=== PATIENT | female | born 1940 | race Caucasian/White ===

== ENCOUNTER 2017-01-24 10:03 | Outpatient (CLI) | payer MEDICARE, OTHER ==
--- NOTE | 2017-01-24 19:12 | Ultrasound Report ---
RETROPERITONEAL ULTRASOUND: 01/24/2017 COMPARISON: Renal artery ultrasound 03/24/2006. INDICATION: Increased creatinine. TECHNIQUE: Sonographic evaluation of the kidneys and urinary bladder. FINDINGS: The right kidney is significantly atrophic with increased echogenicity, consistent with ch ronic kidney disease. There are two cysts within the right kidney that measure up to 1.3 cm. The left kidney has a grossly normal sonographic appearance. Right kidney 6.2 cm. Left kidney 12.2 cm. Bladder volume is 316 mL. Postvoid residual 163 mL. Bilateral ureteral jets are present. IMPRESSION: 1. ATROPHIC RIGHT KIDNEY CONSISTENT WITH CHRONIC RENAL DISEASE. 2. LEFT KIDNEY HAS A GROSSLY NORMAL SONOGRAPHIC APPEARANCE. 3. POSTVOID RESIDUAL ABOVE. JOB #: [id number] EXT JOB #:[id number]
== END 2017-01-24 10:04 | disposition home or self-care (01) ==
LOC: DI 10:03
PROVIDERS: ATTEND Internal Medicine
DX: N26.1 Atrophy of kidney (terminal) (principal)
CPT/HCPCS: 76770

== ENCOUNTER 2017-04-16 08:00 | Outpatient (CLI) | payer MEDICARE, OTHER ==
[2017-04-16 10:14] LABS: VBG PH 7.346 (7.31-7.41)
[2017-04-16 10:26] LABS: ALBUMIN 3.7 g/dL (3.2-5.5); ALBUMIN/GLOBULIN RATIO 1.2 (1.0-2.2); BILIRUBIN,TOTAL 0.5 mg/dL (0.2-1.0); CALCIUM 10.2 mg/dL (8.5-10.3); CREATININE 0.9 mg/dL (0.4-1.0); TOTAL PROTEIN 6.9 g/dL (6.7-8.2)
== END 2017-04-16 08:01 | disposition home or self-care (01) ==
LOC: LAB 08:00 → LAB.F 08:55
PROVIDERS: ATTEND Internal Medicine
DX: E83.52 Hypercalcemia (principal); E21.3 Hyperparathyroidism, unspecified; R79.89 Other specified abnormal findings of blood chemistry; R53.83 Other fatigue
CPT/HCPCS: 36415; 80053; 82330; 83970

== ENCOUNTER 2017-05-22 08:11 | Outpatient (CLI) | payer MEDICARE, OTHER ==
--- NOTE | 2017-05-22 15:22 | DEXA Report ---
DEXA SCAN: 05/22/2017 CLINICAL INDICATION: Post-menopausal, new diagnosis of hyperparathyroidism. TECHNIQUE: Dual energy x-ray absorptiometry (DXA) was performed on a Easy Ice system. Regions measured are the AP spine, femoral neck, and, if needed, forearm. COMPARISON: None. In accordance with the International Society for Clinical Densitometry (ISCD) guidelines, data from previous exams may be reanalyzed using current recommendations and techniques. This is done to allow a more accurate basis for comparison with the current study. FINDINGS: The data for the lumbar spine is as follows: REGION BMD (g/cm/cm) T-SCORE Z-SCORE L1 0.962 -1.4 0.1 L2 1.124 -0.6 0.9 TOTAL 1.040 -1.0 0.5 NOTE: All evaluable vertebrae are used for classification. The data for the hip is as follows: REGION BMD (g/cm/cm) T-SCORE Z-SCORE Neck 0.814 -1.6 0.3 TOTAL 0.783 -1.8 -0.1 NOTE: The femoral neck or total proximal femur, whichever is lowest, is used for classification. The data for the forearm is as follows: REGION BMD (g/cm/cm) T-SCORE Z-SCORE 1/3 0.484 -4.5 -1.9 NOTE: The 33% radius of the nondominant forearm is used for classification. IMPRESSION 1. THE WHO CLASSIFICATION BASED ON THE INTERNATIONAL REFERENCE STANDARD IS OSTEOPOROSIS. THE FRACTURE RISK IS HIGH. 2. RIGHT FOREARM EVALUATION PERFORMED DUE TO NEW DIAGNOSIS OF HYPERPARATHYROIDISM. RECOMMENDATION: Patients with diagnosis of osteoporosis or osteopenia should have regular bone mineral density assessment. For those eligible for Medicare, routine testing is allowed once every 2 years. Testing frequency can be increased for patients who have rapidly progressing disease or for those who are receiving medical therapy to restore bone mass. COMMENT: World Health Organization (WHO) definitions for osteoporosis and osteopenia: NORMAL BMD: T-score at 1.0 or higher, fracture risk is low. OSTEOPENIA BMD: T-score between 1.0 and -2.5, fracture risk is increased. OSTEOPOROSIS BMD: T-score at 2.5 or lower, fracture risk high. National Osteoporosis Foundation recommends: 1. Obtain adequate dietary calcium (at least 1200 mg per day) and vitamin D (400 -800 international units per day). 2. Participate, as appropriate, in regular weightbearing and muscle- strengthening exercise. 3. Avoid tobacco use and reduce alcohol and caffeine intake. 4. For more detailed information see the website at www.NOF.org. MTDD
== END 2017-05-22 08:12 | disposition home or self-care (01) ==
LOC: DI 08:11
PROVIDERS: ATTEND Internal Medicine
DX: Z13.820 Encounter for screening for osteoporosis (principal); M81.0 Age-related osteoporosis without current pathological fracture; N95.8 Other specified menopausal and perimenopausal disorders; E21.3 Hyperparathyroidism, unspecified
CPT/HCPCS: 77080; 77081

== ENCOUNTER 2017-07-17 15:56 | Outpatient (CLI) | payer MEDICARE, OTHER | END 2017-07-17 15:57 | disposition home or self-care (01) | LOC: LAB 15:56 | PROVIDERS: ATTEND Otolaryngology | DX: E21.0 Primary hyperparathyroidism (principal) | CPT/HCPCS: 36415; 82306; 82310; 83970 ==

== ENCOUNTER 2018-10-09 14:07 | Emergency (ER) | payer MEDICARE, OTHER ==
[2018-10-09] MEDS ORDERED: BACLOFEN 10 MG TABLET PO STA (15:09)
[2018-10-09] MEDS ORDERED: KETOROLAC 30 MG/ML VIAL IVP STA (15:09)
--- NOTE | 2018-10-09 15:27 | ED Physician Documentation ---
PD HPI NECK PAIN - Stated complaint Stated Complaint: NECK PX - Chief complaint Chief Complaint: Back Pain - History obtained from History obtained from: Patient - History of Present Illness Timing - duration: Days (3 days after driving back to [facility] from [place] over the weekened.) Timing - details: Abrupt onset Severity Comments: moderate stiffness more than pain Location: Other (lower neck bilaterally) Quality: Pain, Spasm Associated symptoms: No: Fever, Weakness, Numbness, Incontinent of urine, Unable to urinate, Hematuria, Incontinent of stool Improves with: Nothing Worsened by: Movement Similar symptoms before: Has not had sx before Recently seen: Other (by chiropractor) - Treatment prior to arrival 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 Did take a long car ride Review of Systems Ten Systems: 10 systems reviewed and negative Constitutional: denies: Fever, Chills Cardiac: reports: Reviewed and negative Respiratory: reports: Dyspnea. denies: Cough, Hemoptysis, Wheezing GI: denies: Abdominal Pain, Nausea, Vomiting : reports: Reviewed and negative Skin: reports: Reviewed and negative Musculoskeletal: reports: Neck pain. denies: Back pain, Extremity pain, Joint pain, Extremity swelling, Joint swelling, Pain with weight bearing Neurologic: denies: Headache, Head injury, LOC PD PAST MEDICAL HISTORY - Past Medical History Past Medical History: Yes Cardiovascular: Hypertension Respiratory: None Endocrine/Autoimmune: None GI: GERD : None HEENT: None Psych: None Musculoskeletal: Other Derm: None - Past Surgical History General: Colonoscopy Ortho: Hip replacement, Spine surgery - Present Medications Home Medications: Ambulatory Orders Medication Instructions Recorded Confirmed Lisinopril 20 mg PO DAILY 11/30/14 11/30/14 Omeprazole [PriLOSEC] 20 mg PO BID 11/30/14 11/30/14 hydroCHLOROthiazide 12.5 mg PO DAILY 11/30/14 11/30/14 [Hydrochlorothiazide] Cyclobenzaprine [Flexeril] 10 mg PO TID PRN #20 tablet 10/09/18 predniSONE [Prednisone] 40 mg PO DAILY #10 tablet 10/09/18 traMADol [Ultram] 50 mg PO Q4-6H #10 tablet 10/09/18 - Allergies Allergies/Adverse Reactions: Allergies Allergy/AdvReac Type Severity Reaction Status Date / Time No Known Drug Allergies Allergy Verified 10/09/18 14:20 PD ED PE NORMAL - Vitals Vital signs reviewed: Yes - General General: Alert and oriented X 3, No acute distress, Well developed/nourished - HEENT HEENT: Atraumatic, PERRL, Pharynx benign - Neck Neck: Supple, no meningeal sign, No bony TTP, No JVD - Cardiac Cardiac: RRR, No murmur, No gallop, No rub, Strong equal pulses - Respiratory Respiratory: No respiratory distress - Abdomen Abdomen: Soft, Non distended - Female Female : Deferred - Rectal Rectal: Deferred - Derm Derm: Normal color, Warm and dry, No rash - Extremities Extremities: No deformity, No edema - Neuro Neuro: Alert and oriented X 3 Eye Opening: Spontaneous Motor: Obeys Commands Verbal: Oriented GCS Score: 15 - Psych Psych: Normal mood, Normal affect PD ED PE EXPANDED - Neck Neck: Stiff neck, No tenderness, Limited ROM (due to feeling stiff.). No: JVD present, Thyroid enlarged / mass, Soft tissue TTP - Extremities Extremities: Other (Right wrist redness, warmth, swelling, full painless ROM however and no pain with axial loading. ) Results - Vitals Vitals: Vital Signs - 24 hr 10/09/18 10/09/18 14:18 17:36 Temperature 37.3 C Heart Rate 80 75 Respiratory 18 14 Rate Blood Pressure 147/55 H 138/71 H O2 Saturation 98 99 Oxygen O2 Source Room air - Labs Labs: Laboratory Tests 10/09/18 10/09/18 10/09/18 16:35 16:35 16:35 WBC 14.0 H RBC 3.86 L Hgb 11.2 L Hct 34.1 L MCV 88.3 MCH 29.0 MCHC 32.8 RDW 14.8 Plt Count 291 MPV 9.6 Neut # (Auto) Not Reportable Lymph # (Auto) Not Reportable Izard # (Auto) Not Reportable Eos # (Auto) Not Reportable Baso # (Auto) Not Reportable Absolute Nucleated RBC Not Reportable Total Counted 100 Band Neuts % (Manual) 2 Abnorm Lymph % (Manual) 0 Nucleated RBC % Not Reportable Neutrophils # (Manual) 10.5 H Lymphocytes # (Manual) 2.1 Monocytes # (Manual) 1.4 H Eosinophils # (Manual) 0.0 Basophils # (Manual) 0.0 Differential Comment MANUAL DIFFERENTIAL Manual Slide Review Indicated WBC Morphology NORMAL APPEARANCE Platelet Estimate NORMAL (130-450,000) Platelet Morphology NORMAL APPEARANCE RBC Morph Micro Appear NORMAL APPEARANCE D-Dimer 516.9 H Sodium 135 Potassium 3.8 Chloride 103 Carbon Dioxide 21 Anion Gap 11.0 BUN 15 Creatinine 0.9 Estimated GFR (MDRD) 60 L Glucose 109 H Calcium 8.4 L - Rads (name of study) CXR Radiology: EMP read indepedently (no acute disease ) Right wrist xray Radiology: EMP read indepedently (arthritis, no acute fx or injury) CTA chest Radiology: Final report received (negative for acute disease, bilateral atelectasis present ) PD MEDICAL DECISION MAKING - ED course Complexity details: reviewed results, re-evaluated patient, considered differential, d/w patient, d/w family ED course: ddx- arthritis, gout, whiplash, cervical sprain, torticollis, pneumonia, pleural effusion, ptx, PE 78 y/o F with multiple complaints - pt with R wrist pain for a few days, wrist is warm, swollen, red. Pt has hx of gout Suspect this is in fact gout given exam, xray c/w arthritis. Will start course of steroids given ibuprofen not ideal for pt given her age. She also has neck stiffness and discomfort for 3 days since having a long drive back from [place]. Pt does have some tenseness of muscles. No fever or signs of meningitis. No hx of trauma. Given analgesics here and will give trial of trigger pt injection. Also c/o sob since having this neck discomfort, no cough or wheezing. CXR neg for PNA, effusion, ptx, doubt PE as pt has normal O2 sats and no other signs or symptoms of PE. Departure - Departure Clinical Impression: Neck sprain Qualifiers: Encounter type: initial encounter Qualified Code(s): S13.9XXA - Sprain of joints and ligaments of unspecified parts of neck, initial encounter Gout of wrist Qualifiers: Gout etiology: other secondary cause Chronicity: acute Laterality: right Qualified Code(s): M10.431 - Other secondary gout, right wrist Condition: Stable Record reviewed to determine appropriate education?: Yes Instructions: ED Sprain Strain Neck Follow-Up: RICHIE DE MD [Primary Care Provider] - Prescriptions: Cyclobenzaprine [Flexeril] 10 mg PO TID PRN #20 tablet PRN Reason: Spasms predniSONE [Prednisone] 40 mg PO DAILY #10 tablet traMADol [Ultram] 50 mg PO Q4-6H #10 tablet Comments: Your CT scan of your chest today was negative for a blood clot in your lung or pneumonia. Your symptoms may be due to your neck pain and not taking deep enough breaths. Your neck exam is suggestive of a muscle strain. Your symptoms improved here with trigger point injections and muscle relaxants. You can continue to take these medications at home. Use tramadol as needed for your R wrist pain. Take cyclobenzaprine as needed for your neck pain and stiffness. Also use heat on your neck and massage to relax the muscles. Finish the steroids for your gout. You also have gout in your R wrist. This should improve with steroids and pain medicine. Return to the ED if worsening symptoms otherwise follow up with your primary care doctor.
[2018-10-09] MEDS ORDERED: BUPIVACAINE 0.25%-EPI 1:200000 PF 30 ML VIAL SUBQ STA (15:48)
--- NOTE | 2018-10-09 16:02 | XRAY Report ---
Reason: cough Procedure Date: 10/09/2018 Accession Number: [id number] / [id number] Procedure: XR - Chest 2 View X-Ray CPT Code: 41561 FULL RESULT: EXAM: CHEST RADIOGRAPHY EXAM DATE: 10/09/2018 03:51 PM. CLINICAL HISTORY: Cough. COMPARISON: CHEST 2 VIEW PA/LAT 09/14/2014 11:52 AM. TECHNIQUE: 2 views. FINDINGS: Lungs/Pleura: Subtle linear density at the left lung base, subsegmental atelectasis versus scarring are favored. There is hyperinflation of the lungs with flattening of diaphragms. There is otherwise essentially no focal consolidative airspace disease or pulmonary edema. Pleural spaces are clear without sizable effusion or pneumothorax. Mediastinum: Cardiomediastinal silhouette is not enlarged, aortic arch mildly calcified, overall not significantly different from 2014. Other: None. IMPRESSION: No acute airspace disease is detected. Likely obstructive lung disease. RADIA
--- NOTE | 2018-10-09 16:04 | XRAY Report ---
Reason: swelling pain redness Procedure Date: 10/09/2018 Accession Number: [id number] / [id number] Procedure: XR - Wrist 2 View RT CPT Code: FULL RESULT: EXAM: RIGHT WRIST RADIOGRAPHY. EXAM DATE: 10/09/2018 03:51 PM. CLINICAL HISTORY: Swelling pain redness. COMPARISON: None. TECHNIQUE: 2 views. FINDINGS: Bones: The bones are qualitatively osteopenic; this limits evaluation for underlying fractures or masses. The patient is status post trapezium resection. No definite fracture is seen. Joints: Advanced degenerative changes are seen in the region of the triscaphe articulation status post trapezium resection as mentioned above. No unexpected dislocation. Soft Tissues: Normal. No soft tissue swelling. IMPRESSION: Degenerative changes, advanced at the base of the thumb status post prior trapezium resection. Osteopenia. RADIA
[2018-10-09 16:44] LABS: BASOPHILS % (AUTO) 0.2 %; EOSINOPHILS % (AUTO) 0.2 %; HGB - HEMOGLOBIN 11.2 g/dL (12.0-16.0); LYMPHOCYTES % (AUTO) 15.3 %; MEAN CORPUSCULAR HGB CONC 32.8 g/dL (32.0-36.0); MEAN CORPUSCULAR VOLUME 88.3 fL (81.0-99.0); MEAN PLATELET VOLUME 9.6 fL (7.9-10.8); MONOCYTES % (AUTO) 14.1 %; NEUTROPHILS % (AUTO) 69.5 %; PLT - PLATELET COUNT 291 10^3/uL (130-450); RED BLOOD COUNT 3.86 10^6/uL (4.20-5.40); RED CELL DISTRIBUTION WIDTH 14.8 % (12.0-15.0)
[2018-10-09 16:47] LABS: ABNORMAL LYMPHS % (MANUAL) 0 %
[2018-10-09 16:50] LABS: CALCIUM 8.4 mg/dL (8.5-10.3); CREATININE 0.9 mg/dL (0.4-1.0)
[2018-10-09 17:00] LABS: BAND NEUTROPHILS % (MANUAL) 2 %; DIFFERENTIAL COMMENT MANUAL DIFFERENTIAL; LYMPHOCYTES # (MANUAL) 2.1 10^3/uL (1.5-3.5); LYMPHOCYTES % (MANUAL) 15 %; MONOCYTES # (MANUAL) 1.4 10^3/uL (0.0-1.0); NEUTROPHILS # (MANUAL) 10.5 10^3/uL (1.5-6.6); NEUTROPHILS % (MANUAL) 73 %; PLATELET ESTIMATE, MANUAL NORMAL (130-450,000) (NORMAL); PLATELET MORPHOLOGY NORMAL APPEARANCE (NORMAL); RBC MORPHOLOGY (MULTIPLE) NORMAL APPEARANCE (NORMAL)
[2018-10-09] MEDS ORDERED: IOVERSOL 320 100 ML VIAL IVP ONE ×2 (17:13→17:26)
[2018-10-09] MEDS ORDERED: HYDROmorphone 2 MG/ML VIAL IVP STA (17:26)
--- NOTE | 2018-10-09 17:57 | CT Report ---
Reason: eval for PE Procedure Date: 10/09/2018 Accession Number: [id number] / [id number] Procedure: CT - ANGIO CHEST W/WO CPT Code: FULL RESULT: EXAM: CT ANGIOGRAM CHEST EXAM DATE: 10/09/2018 05:25 PM. CLINICAL HISTORY: Eval for PE. Right neck pain. Elevated d-dimer. COMPARISON: CHEST ANGIO 05/05/2015 4:58 PM CHEST 2 VIEW 10/09/2018 3:40 PM. TECHNIQUE: Routine helical imaging was performed through the chest in the pulmonary arterial phase. IV Contrast: OPTI 320 80ML. Reconstructions: Coronal 3-D MIP reconstructions.Sagittal and coronal. In accordance with CT protocol optimization, one or more of the following dose reduction techniques were utilized for this exam: automated exposure control, adjustment of mA and/or KV based on patient size, or use of iterative reconstructive technique. FINDINGS: Pulmonary Arteries: Diagnostic quality: Adequate through the segmental arteries. No evidence for acute or chronic pulmonary emboli. RV/LV is within normal limits. There is no interventricular septal bowing. There is no reflux of contrast material in the IVC. Lungs/Pleura: Trace right pleural fluid. No pneumothorax. Minimal dependent bibasilar atelectasis. No confluent consolidation. No emphysema or generalized interstitial abnormality. Central airways are normal. Mediastinum: No cardiac enlargement or lymphadenopathy. Small nodules in the right thyroid lobe. Thoracic Aorta: Mild calcified plaque. Partially opacified. No aneurysm or evidence of dissection. Upper Abdomen: 2 cm circumscribed oval hypodensity consistent with a cyst in the lateral left hepatic lobe, as before. Tiny calcified granuloma in the spleen. Otherwise unremarkable. Other: Mild multilevel thoracic degenerative disk disease. Chest wall unremarkable. IMPRESSION: 1. There is no pulmonary embolism. 2. Lungs are clear except for minimal physiologic bibasilar atelectasis. RADIA
[2018-10-09 19:09] VITALS: BP 149/84
== END 2018-10-09 19:08 | disposition home or self-care (01) ==
LOC: ED 14:07
DX: S13.9XXA Sprain of joints and ligaments of unspecified parts of neck, initial encounter (principal); X58.XXXA Exposure to other specified factors, initial encounter; M10.431 Other secondary gout, right wrist; M19.031 Primary osteoarthritis, right wrist; R06.02 Shortness of breath; I10 Essential (primary) hypertension
CPT/HCPCS: 36415; 71046; 71275; 73100; 80048; 85025; 85379; 99284; A9270; J1170; Q9967

== ENCOUNTER 2018-10-11 14:53 | Outpatient (CLI) | payer MEDICARE, OTHER ==
[2018-10-11 15:15] LABS: BASOPHILS % (AUTO) 0.2 %; EOSINOPHILS % (AUTO) 0.2 %; HGB - HEMOGLOBIN 11.1 g/dL (12.0-16.0); LYMPHOCYTES # (AUTO) 0.8 10^3/uL (1.5-3.5); LYMPHOCYTES % (AUTO) 6.6 %; MEAN CORPUSCULAR HEMOGLOBIN 28.1 pg (27.0-31.0); MEAN CORPUSCULAR HGB CONC 31.3 g/dL (32.0-36.0); MEAN CORPUSCULAR VOLUME 89.9 fL (81.0-99.0); MEAN PLATELET VOLUME 9.6 fL (7.9-10.8); MONOCYTES # (AUTO) 0.3 10^3/uL (0.0-1.0); MONOCYTES % (AUTO) 2.4 %; NEUTROPHILS # (AUTO) 11.4 10^3/uL (1.5-6.6); NEUTROPHILS % (AUTO) 90.1 %; PLT - PLATELET COUNT 371 10^3/uL (130-450); RED BLOOD COUNT 3.95 10^6/uL (4.20-5.40); RED CELL DISTRIBUTION WIDTH 14.8 % (12.0-15.0); WHITE BLOOD COUNT 12.7 x10^3/uL (4.8-10.8)
[2018-10-11 15:30] LABS: CRP - C-REACTIVE PROTEIN 6.9 mg/dL (0-1.0)
[2018-10-11 15:31] LABS: URIC ACID 5.7 mg/dL (2.6-7.2)
== END 2018-10-11 14:54 | disposition home or self-care (01) ==
LOC: LAB 14:53
PROVIDERS: ATTEND Internal Medicine
DX: D72.829 Elevated white blood cell count, unspecified (principal); M25.431 Effusion, right wrist; E83.52 Hypercalcemia
CPT/HCPCS: 36415; 82310; 83970; 84550; 85025; 85651; 86140

== ENCOUNTER 2018-10-30 15:58 | Outpatient (CLI) | payer MEDICARE, OTHER ==
--- NOTE | 2018-10-31 16:29 | MRI Report ---
Reason: PAIN RIGHT WRIST, CERVICALGIA, HEADACHE Procedure Date: 10/30/2018 Accession Number: [id number] / [id number] Procedure: MRI - Cervical Spine W/O CPT Code: FULL RESULT: EXAM: MRI CERVICAL SPINE WITHOUT CONTRAST EXAM DATE: 10/30/2018 05:39 PM. CLINICAL HISTORY: PAIN RIGHT WRIST, CERVICALGIA, HEADACHE. COMPARISONS: MRI CERVICAL SPINE W/O CONT 02/15/2011 3:36 PM. TECHNIQUE: Multiplanar, multisequence T1-weighted and fluid-sensitive sequences of the cervical spine without contrast. Other: None. FINDINGS: Neurologic Structures: The visualized posterior fossa structures are unremarkable. No signal abnormality in the visualized spinal cord. Alignment: Approximately 2 mm subluxation of C4 on C5. 2.5 mm anterior subluxation C5 on C6. Otherwise normal alignment. Bone Marrow: No acute fracture. No destructive bone lesion. Interspace Levels/Facets: C1-C2: Degenerative changes at the atlantodental articulation. Mild degenerative changes at the left greater than right C1-C2 lateral mass articulation. No significant stenosis. C2-C3: Mild to moderate right and mild left facet arthropathy. No central canal stenosis. Moderate right foraminal stenosis. C3-C4: Moderate left greater than right degenerative facet arthropathy with osteophyte formation. Uncinate hypertrophy. Severe left and mild right foraminal stenosis. Mild effacement of the thecal sac. C4-C5: Severe right and moderate left degenerative facet arthropathy. Annular disk bulge. Uncinate prominence. Mild central canal stenosis. Moderate right foraminal stenosis. C5-C6: Grade 1 spondylolisthesis. Annular disk bulge. Severe right-sided degenerative facet arthropathy. Mild left facet arthropathy. Mild central canal stenosis. Moderate right greater than left foraminal stenosis. C6-C7: Annular disk bulge with broad-based central protrusion. Right greater than left degenerative facet arthropathy. Mild central canal stenosis. No significant foraminal stenosis. C7-T1: Small broad-based central disk protrusion. Minimal effacement of the thecal sac. No significant stenosis. Musculature: Normal. No edema or fatty atrophy. Other: Prevertebral soft tissues within normal limits. Complex nodule in the right lobe of the thyroid gland measuring 1.8 x 1.9 x 2.2 cm. Additional nodules bilaterally. Appearance similar to prior MRI. IMPRESSION: 1. Multilevel cervical degenerative disk and facet arthropathy. 2. Mild anterior subluxations at C4-C5 and C5-C6 similar to prior. 3. C5-C6 mild central canal stenosis. Moderate right greater than left foraminal stenosis. 4. C4-C5 mild central canal stenosis and moderate right foraminal stenosis. 5. C3-C4 severe left and mild right foraminal stenosis. 6. C2-C3 moderate right foraminal stenosis. RADIA
--- NOTE | 2018-10-31 16:52 | MRI Report ---
Reason: PAIN RIGHT WRIST, CERVICALGIA, HEADACHE Procedure Date: 10/30/2018 Accession Number: [id number] / [id number] Procedure: MRI - Wrist RT W/O CPT Code: FULL RESULT: EXAM: RIGHT WRIST MRI WITHOUT CONTRAST EXAM DATE: 10/30/2018 05:49 PM. CLINICAL HISTORY: Pain right wrist, cervicalgia, headache. COMPARISON: WRIST 2 VIEW RT 10/09/2018 3:40 PM. TECHNIQUE: Multiplanar, multisequence T1-weighted and fluid-sensitive sequences of the wrist without contrast. Other: None. FINDINGS: Bones and articular surfaces: Multiple erosions are seen within the carpal bones. Small to moderate marrow edema associated with these areas. Cartilage thinning throughout the carpus. Severe focal subchondral edema at the distal anterior aspect of the radius with some irregular hypointense associated T1 signal. Possible slight impaction at the distal cortex. Severe joint space narrowing at the first CMC and distal scaphoid articulations with marginal osteophytes. Small amount of synovitis within the wrist joint. Small volar radiocarpal ganglion cyst. Musculotendinous structures: Visualized flexor and extensor tendons appear intact. Mild thickening of the extensor carpi ulnaris tendon. No significant tendon sheath fluid signal. No muscle atrophy or fatty replacement within the field of view. Ligaments: No scapholunate or lunotriquetral diastases. Possible perforation at the central disk of the triangular fibrocartilage. IMPRESSION: 1. Multifocal erosive changes throughout the carpus and mild synovitis within the joint raising concern for inflammatory arthritis such as rheumatoid arthritis. Other inflammatory or crystal arthropathy may be considered. 2. Advanced degenerative joint disease at the first CMC and distal scaphoid articulations. 3. Mild extensor carpi ulnaris tendinosis. 4. Focal severe subchondral marrow edema with irregular T1 signal at the volar margin of the distal radius. Possibility of a small impaction fracture versus active erosion. Correlate with any recent trauma. RADIA
== END 2018-10-30 15:59 | disposition home or self-care (01) ==
LOC: DI 15:58
PROVIDERS: ATTEND Internal Medicine
DX: M85.88 Other specified disorders of bone density and structure, other site (principal); M18.11 Unilateral primary osteoarthritis of first carpometacarpal joint, right hand; M19.031 Primary osteoarthritis, right wrist; R60.0 Localized edema; M50.31 Other cervical disc degeneration, high cervical region; M48.02 Spinal stenosis, cervical region; M47.812 Spondylosis without myelopathy or radiculopathy, cervical region; M43.12 Spondylolisthesis, cervical region
CPT/HCPCS: 72141

== ENCOUNTER 2019-08-09 09:24 | Inpatient (IN) | payer MEDICARE, OTHER ==
--- NOTE | 2019-08-09 09:29 | ED Physician Documentation ---
PD HPI FEMALE - Stated complaint Stated Complaint: FEMALE - History obtained from History obtained from: Patient PD PAST MEDICAL HISTORY - Past Medical History Cardiovascular: Hypertension Respiratory: None Endocrine/Autoimmune: None GI: GERD : None HEENT: None Psych: None Musculoskeletal: Other Derm: None - Past Surgical History General: Colonoscopy Ortho: Hip replacement, Spine surgery - Present Medications Home Medications: Ambulatory Orders Medication Instructions Recorded Confirmed Lisinopril 20 mg PO DAILY 11/30/14 11/30/14 Omeprazole [PriLOSEC] 20 mg PO BID 11/30/14 11/30/14 hydroCHLOROthiazide 12.5 mg PO DAILY 11/30/14 11/30/14 [Hydrochlorothiazide] Cyclobenzaprine [Flexeril] 10 mg PO TID PRN #20 tablet 10/09/18 predniSONE [Prednisone] 40 mg PO DAILY #10 tablet 10/09/18 traMADol [Ultram] 50 mg PO Q4-6H #10 tablet 10/09/18 - Allergies Allergies/Adverse Reactions: Allergies Allergy/AdvReac Type Severity Reaction Status Date / Time No Known Drug Allergies Allergy Verified 10/09/18 14:20 - Social History Does the pt smoke?: No Smoking Status: Never smoker Results - Vitals Vitals: Oxygen O2 Source Room air
[2019-08-09] MEDS ORDERED: SODIUM CHLORIDE 0.9% 1,000 ML IV ONE ×2 (09:50→11:36)
--- NOTE | 2019-08-09 10:10 | ED Physician Documentation ---
PD HPI ALTERED MENTAL STATUS - Stated complaint Stated Complaint: FEMALE - Chief complaint Chief Complaint: Neuro - History obtained from History obtained from: Patient - History of Present Illness Timing - onset: How many days ago (2) Timing - duration: Days (2) Timing - details: Gradual onset, Still present (worse today) Quality / character: Confused, Other (lightheaded) Associated symptoms: Urinary sx (She had dysuria several days ago and treated with Bactrim for it. She states her dysuria is improved.). No: Fever, Headache, Stiff neck, Dyspnea Contributing factors: New medication (Bactrim for the past 3 days). No: Diabetic, Recent med change, Intoxicated Basline status: Alert and oriented X 3, Ambulatory Similar symptoms before: Has not had sx before Recently seen: Clinic (Had a telemedicine appointment with her provider with the urinary symptoms and prescribed Bactrim DS for it 3 days ago. The patient states since onset of taking the medicine, she is feeling generally weaker li ghtheaded and a bit confused. She thought she was having side effects to the medicines.) Review of Systems Constitutional: reports: Myalgias, Fatigue. denies: Fever, Chills Nose: denies: Rhinorrhea / runny nose, Congestion Throat: denies: Sore throat Respiratory: denies: Cough GI: reports: Nausea. denies: Abdominal Pain, Vomiting, Diarrhea : reports: Dysuria, Frequency. denies: Hematuria, Discharge Skin: denies: Rash, Lesions Neurologic: reports: Generalized weakness, Confused, Altered mental status (feeling "drugged"). denies: Focal weakness, Numbness, Near syncope, Headache, Head injury PD PAST MEDICAL HISTORY - Past Medical History Cardiovascular: Hypertension Respiratory: None Endocrine/Autoimmune: None GI: GERD : None HEENT: None Psych: None Musculoskeletal: Other Derm: None - Past Surgical History General: Colonoscopy Ortho: Hip replacement, Spine surgery - Present Medications Home Medications: Ambulatory Orders Medication Instructions Recorded Confirmed Lisinopril 40 mg PO QPM 11/30/14 08/09/19 - Allergies Allergies/Adverse Reactions: Allergies Allergy/AdvReac Type Severity Reaction Status Date / Time ceftriaxone Allergy Rash Verified 08/09/19 14:24 - Social History Does the pt smoke?: No Smoking Status: Never smoker PD ED PE NORMAL - Vitals Vital signs reviewed: Yes - General General: Alert and oriented X 3, No acute distress, Well developed/nourished - HEENT HEENT: Moist mucous membranes, Pharynx benign - Neck Neck: Supple, no meningeal sign, No adenopathy - Cardiac Cardiac: RRR, No murmur - Respiratory Respiratory: Clear bilaterally - Abdomen Abdomen: Normal bowel sounds, Soft, Non tender, Non distended - Female Female : Deferred - Rectal Rectal: Deferred - Back Back: No CVA TTP - Derm Derm: Normal color, Warm and dry - Extremities Extremities: Normal ROM s pain, No edema, No calf tenderness / cord - Neuro Neuro: Alert and oriented X 3, exhibition organiser 2-12 intact (faint perhaps slight facial droop left corner of mouth), No motor deficit, No sensory deficit, Normal speech Eye Opening: Spontaneous Motor: Obeys Commands Verbal: Oriented GCS Score: 15 Results - Vitals Vitals: Vital Signs - 24 hr 08/09/19 08/09/19 08/09/19 09:42 11:47 12:21 Temperature 36.4 C L 36.8 C Heart Rate 101 H 79 78 Respiratory 20 18 18 Rate Blood Pressure 119/73 101/58 L 111/58 L O2 Saturation 98 99 99 Oxygen O2 Source Room air - Labs Labs: Laboratory Tests 08/09/19 08/09/19 08/09/19 10:20 10:20 10:20 WBC 17.8 H RBC 4.22 Hgb 12.0 Hct 33.8 L MCV 80.1 L MCH 28.4 MCHC 35.5 RDW 14.7 Plt Count 155 MPV 11.3 H Neut # (Auto) 16.1 H Lymph # (Auto) 0.5 L King # (Auto) 0.7 Eos # (Auto) 0.2 Baso # (Auto) 0.2 H Absolute Nucleated RBC 0.00 Nucleated RBC % 0.0 Sodium 129 L Potassium 3.7 Chloride 93 L Carbon Dioxide 20 L Anion Gap 16.0 H BUN 79 H Creatinine 6.1 H Estimated GFR (MDRD) 7 L Glucose 64 L Lactic Acid 1.2 Calcium 8.4 L Magnesium 2.5 Total Bilirubin 1.1 H AST 39 ALT 24 Alkaline Phosphatase 89 Total Protein 6.2 L Albumin 2.5 L Globulin 3.7 Albumin/Globulin Ratio 0.7 L Lipase 22 Urine Color Urine Clarity Urine pH Ur Specific Orient Urine Protein Urine Glucose (UA) Urine Ketones Urine Occult Blood Urine Nitrite Urine Bilirubin Urine Urobilinogen Ur Leukocyte Esterase Urine RBC Urine WBC Ur Squamous Epith Cells Urine Bacteria Ur Microscopic Review Urine Culture Comments Urine Opiates Screen Ur Oxycodone Screen Urine Methadone Screen Ur Propoxyphene Screen Ur Barbiturates Screen Ur Tricyclics Screen Ur Phencyclidine Scrn Ur Amphetamine Screen U Methamphetamines Scrn U Benzodiazepines Scrn Urine Cocaine Screen U Cannabinoids Screen Ethyl Alcohol < 5.0 08/09/19 08/09/19 10:47 10:47 WBC RBC Hgb Hct MCV MCH MCHC RDW Plt Count MPV Neut # (Auto) Lymph # (Auto) King # (Auto) Eos # (Auto) Baso # (Auto) Absolute Nucleated RBC Nucleated RBC % Sodium Potassium Chloride Carbon Dioxide Anion Gap BUN Creatinine Estimated GFR (MDRD) Glucose Lactic Acid Calcium Magnesium Total Bilirubin AST ALT Alkaline Phosphatase Total Protein Albumin Globulin Albumin/Globulin Ratio Lipase Urine Color YELLOW Urine Clarity CLOUDY Urine pH 6.0 Ur Specific Orient 1.010 Urine Protein 30 H Urine Glucose (UA) NEGATIVE Urine Ketones NEGATIVE Urine Occult Blood MODERATE H Urine Nitrite NEGATIVE Urine Bilirubin NEGATIVE Urine Urobilinogen 0.2 (NORMAL) Ur Leukocyte Esterase LARGE H Urine RBC TNTC H Urine WBC >25 H Ur Squamous Epith Cells FEW Squamous Urine Bacteria Many H Ur Microscopic Review INDICATED Urine Culture Comments INDICATED Urine Opiates Screen NEGATIVE Ur Oxycodone Screen NEGATIVE Urine Methadone Screen NEGATIVE Ur Propoxyphene Screen NEGATIVE Ur Barbiturates Screen NEGATIVE Ur Tricyclics Screen NEGATIVE Ur Phencyclidine Scrn NEGATIVE Ur Amphetamine Screen NEGATIVE U Methamphetamines Scrn NEGATIVE U Benzodiazepines Scrn NEGATIVE Urine Cocaine Screen NEGATIVE U Cannabinoids Screen NEGATIVE Ethyl Alcohol - Rads (name of study) head CT Radiology: Prelim report reviewed (no acute process), See rad report PD MEDICAL DECISION MAKING - ED course Complexity details: re-evaluated patient (There was still some signs of urinary tract infection based on her urinalysis. She is given Rocephin 1 g IV instead of the previous Bactrim. Subsequent to that about 1/2-hour later she was having redness diffusely with some mild itching. There was no swelling of her throat lips or tongue. There is no wheezing. She was given Benadryl 25 mg IV for presumed allergic reaction. She is awake and alert and does not for fever at this time so it does not look like a sepsis rash.), considered differential (The patient has a markedly elevated creatinine and low some low sodium with a normal potassium. Presumably this is a side effect or interactions of the Bactrim along with her normal medicines of JOSE LUIS inhibitor and diuretic. There could be some element of renal insufficiency related to infection as well as she did have a urinary tract infection.), d/w patient Departure - Departure Disposition: 66 [facility] DC/Xfer Clinical Impression: Drug-induced acute renal failure UTI (urinary tract infection) Qualifiers: Urinary tract infection type: acute cystitis Hematuria presence: without hematuria Qualified Code(s): N30.00 - Acute cystitis without hematuria Altered mental status Qualifiers: Altered mental status type: disorientation Qualified Code(s): R41.0 - Disorientation, unspecified Condition: Stable Record reviewed to determine appropriate education?: Yes Discharge Date/Time: 08/09/19 13:07
[2019-08-09] MEDS ORDERED: ONDANSETRON 4 MG/2 ML VIAL IVP STA (10:14)
[2019-08-09 10:29] LABS: EOSINOPHILS # (AUTO) 0.2 10^3/uL (0.0-0.7)
[2019-08-09 10:34] LABS: BASOPHILS # (AUTO) 0.2 10^3/uL (0.0-0.1); BASOPHILS % (AUTO) 0.9 %; LYMPHOCYTES # (AUTO) 0.5 10^3/uL (1.5-3.5); LYMPHOCYTES % (AUTO) 2.6 %; MEAN CORPUSCULAR HEMOGLOBIN 28.4 pg (27.0-31.0); MEAN CORPUSCULAR HGB CONC 35.5 g/dL (32.0-36.0); MEAN CORPUSCULAR VOLUME 80.1 fL (81.0-99.0); MEAN PLATELET VOLUME 11.3 fL (7.9-10.8); MONOCYTES # (AUTO) 0.7 10^3/uL (0.0-1.0); MONOCYTES % (AUTO) 4.1 %; NEUTROPHILS # (AUTO) 16.1 10^3/uL (1.5-6.6); NEUTROPHILS % (AUTO) 90.2 %; PLT - PLATELET COUNT 155 10^3/uL (130-450); RED BLOOD COUNT 4.22 10^6/uL (4.20-5.40); RED CELL DISTRIBUTION WIDTH 14.7 % (12.0-15.0); WHITE BLOOD COUNT 17.8 x10^3/uL (4.8-10.8)
[2019-08-09 10:42] LABS: ALBUMIN 2.5 g/dL (3.2-5.5); ALBUMIN/GLOBULIN RATIO 0.7 (1.0-2.2); ALKALINE PHOSPHATASE 89 IU/L (42-121); ALT ALANINE AMINOTRANSFERASE 24 IU/L (10-60); AST ASPARTATE AMINOTRANSFERASE 39 IU/L (10-42); BILIRUBIN,TOTAL 1.1 mg/dL (0.2-1.0); BUN - BLOOD UREA NITROGEN 79 mg/dL (6-20); CALCIUM 8.4 mg/dL (8.5-10.3); CARBON DIOXIDE - CO2 20 mmol/L (21-32); CHLORIDE 93 mmol/L (101-111); CREATININE 6.1 mg/dL (0.4-1.0); GLUCOSE 64 mg/dL (70-100); LIPASE 22 U/L (22-51); MAGNESIUM 2.5 mg/dL (1.7-2.8); SODIUM 129 mmol/L (135-145); TOTAL PROTEIN 6.2 g/dL (6.7-8.2)
--- NOTE | 2019-08-09 10:44 | CT Report ---
Reason: confused/trouble speaking Procedure Date: 08/09/2019 Accession Number: [id number] / [id number] Procedure: CT - HEAD WO CPT Code: Final Report FULL RESULT: EXAM: CT HEAD EXAM DATE: 08/09/2019 10:12 AM. CLINICAL HISTORY: Confused/trouble speaking. COMPARISON: None. TECHNIQUE: Multiaxial CT images were obtained from the foramen magnum to the vertex. Reformats: Sagittal and coronal. IV contrast: None. In accordance with CT protocol optimization, one or more of the following dose reduction techniques were utilized for this exam: automated exposure control, adjustment of mA and/or KV based on patient size, or use of iterative reconstructive technique. FINDINGS: Parenchyma: No acute intracranial hemorrhage or infarct. There is periventricular low density change consistent with chronic small vessel ischemia. Extraaxial Spaces: Normal for age. No subdural or epidural collections identified. Ventricles: Normal in size and position. Sinuses and Orbits: Imaged paranasal sinuses, orbits, and mastoids show no significant abnormality. Bones: No evidence of fracture or calvarial defect. Other: None. IMPRESSION: No acute pathology. RADIA
[2019-08-09 10:58] LABS: BILIRUBIN,URINE NEGATIVE (NEGATIVE); CLARITY,URINE CLOUDY (CLEAR); GLUCOSE, URINE (UA) NEGATIVE (NEGATIVE); KETONES,URINE (UA) NEGATIVE (NEGATIVE); LEUKOCYTE ESTERASE, URINE LARGE (NEGATIVE); NITRITE,URINE NEGATIVE (NEGATIVE); OCCULT BLOOD,URINE MODERATE (NEGATIVE); PROTEIN,URINE 30 mg/dL (NEGATIVE); UROBILINOGEN,URINE 0.2 (NORMAL) E.U./dL (NORMAL)
[2019-08-09 11:04] LABS: BACTERIA,URINE Many /HPF (None Seen); RBC,URINE TNTC /HPF (0-5); SQUAMOUS EPITHELIAL CELL,UR FEW Squamous (<= Few)
[2019-08-09] MEDS ORDERED: FUROSEMIDE 20 MG/2 ML VIAL IVP STA (11:36)
[2019-08-09] MEDS ORDERED: cefTRIAXone 1 GM VIAL IVP STA (12:12)
[2019-08-09] MEDS ORDERED: SODIUM CHLORIDE FLUSH 0.9% 10 ML SYRINGE IVP PRN (12:29)
[2019-08-09] MEDS ORDERED: HYDROmorphone 0.5 MG/0.5 ML SYRINGE IVP PRN (12:29)
[2019-08-09] MEDS ORDERED: diphenhydrAMINE INJ 50 MG/ML VIAL IVP STA (12:43)
[2019-08-09] MEDS ORDERED: diphenhydrAMINE INJ 50 MG/ML VIAL ONE (12:49)
[2019-08-09 13:07] LABS: MUDS CUTOFF CONCENTRATIONS CUTOFF CONC BELOW:
--- NOTE | 2019-08-09 13:27 | PHARMACY PROGRESS NOTE ---
- Best Possible Medication History Admit Date and Time: 08/09/19 1223 Processed by: Pharmacy Medication History completed: Yes Patient Interview: Completed Secondary Source(s): Pharmacy records, Insurance records As the person ultimately responsible for medication therapy, providers are able to order a medication from an existing home medication list in [facility] via the "Reconcile Routine" prior to Confirmation of that medication by field technical support consultant. Such practice is discouraged except when the physician, in their clinical judgment, deems that a medical need exists for a medication without regard to previous use.
[2019-08-09 13:32] LABS: AMPHETAMINE SCREEN,URINE NEGATIVE (NEGATIVE); BENZODIAZEPINES SCREEN, URINE NEGATIVE (NEGATIVE); COCAINE SCREEN URINE NEGATIVE (NEGATIVE); METHADONE SCREEN, URINE NEGATIVE (NEGATIVE); METHAMPHETAMINES SCREEN, URINE NEGATIVE (NEGATIVE); OPIATE SCREEN, URINE NEGATIVE (NEGATIVE); OXYCODONE SCREEN, URINE NEGATIVE (NEGATIVE); PROPOXYPHENE SCREEN, URINE NEGATIVE (NEGATIVE); TRICYCLIC ANTIDEPRESSANT,URINE NEGATIVE (NEGATIVE)
[2019-08-09] MEDS: DEXTROSE 5%-0.9% NACL 1,000 ML IV SCH (14:23)
[2019-08-09] MEDS ORDERED: AZITHROMYCIN INJ 500 MG in SODIUM CHLORIDE 0.9% 250 ML IV SCH (15:00)
[2019-08-09] MEDS ORDERED: MEROPENEM 1 GM in SODIUM CHLORIDE 0.9% MINIBAG 100 ML IV SCH (15:00)
--- NOTE | 2019-08-09 15:36 | XRAY Report ---
Reason: cough Procedure Date: 08/09/2019 Accession Number: [id number] / [id number] Procedure: XR - Chest 1 View X-Ray CPT Code: 72142 Final Report FULL RESULT: EXAM: CHEST RADIOGRAPHY EXAM DATE: 08/09/2019 03:24 PM. CLINICAL HISTORY: Cough. COMPARISON: CHEST 2 VIEW 10/09/2018 3:40 PM CHEST ANGIO 10/09/2018 5:19 PM CHEST 2 VIEW PA/LAT 09/14/2014 11:52 AM. TECHNIQUE: 1 view. FINDINGS: Lungs/Pleura: No focal opacities evident. No pleural effusion. No pneumothorax. Mediastinum: Within exam limitations, the cardiomediastinal contour is normal. There is mild atherosclerotic calcification of the aortic arch. Other: No acute osseous abnormality. There are mild degenerative changes of the bilateral glenohumeral joints. IMPRESSION: No acute cardiopulmonary abnormality. No focal pulmonary consolidation. RADIA
[2019-08-09] MEDS: SODIUM CHLORIDE FLUSH 0.9% 10 ML SYRINGE IVP SCH (15:47)
--- NOTE | 2019-08-09 16:49 | Ultrasound Report ---
Reason: Eval for obstruction, stone, hydronephrosis Procedure Date: 08/09/2019 Accession Number: [id number] / [id number] Procedure: US - Retroperitoneal CPT Code: Final Report FULL RESULT: EXAM: RENAL ULTRASOUND EXAM DATE: 08/09/2019 03:18 PM. CLINICAL HISTORY: Eval for obstruction, stone, hydronephrosis. COMPARISON: RETROPERITONEAL 01/24/2017 10:16 AM. TECHNIQUE: Real-time scanning was performed with static images obtained. FINDINGS: Right Kidney: 7.6 x 3.7 x 3.9 cm. Atrophic appearance with diffuse increased parenchymal echogenicity. No hydronephrosis. Simple 1.2 cm right upper pole cyst. No cyst imaging follow-up is recommended per consensus recommendations based on imaging criteria. Left Kidney: 12.5 x 5.8 x 7.0 cm. Compensatory hypertrophy. Mild pelvicaliectasis. Normal echotexture with no stones, contour-deforming masses, or sally hydronephrosis. Bladder: Knee a right ureteral jet was seen. The prevoid bladder volume was 122 cc. Patient was unable to void at time of exam. Other: None. IMPRESSION: 1. Mild left renal pelvicaliectasis, without sally hydronephrosis. 2. Absent left ureteral jet, nonspecific finding. 3. Atrophic right kidney. RADIA
[2019-08-09] MEDS: AZTREONAM 1 GM in SODIUM CHLORIDE 0.9% MINIBAG 100 ML IV SCH (16:51)
--- NOTE | 2019-08-09 19:26 | ADVANCE CARE PLANNING NOTE ---
Advance Care Planning - Planning Encounter Date: 08/09/19 Time: 18:00 Purpose: To establish Code Blue status. Parties in Attendance: I spoke to the patient who was in bed in her room. Decisional Capacity of the Patient: She is appropriate and was gave answers quickly, having thought about her wishes for Code status. - Diagnosis for Encounter (1) Sepsis Summary: She is admitted today with sepsis, and altered mental status, uremic with a complicated UTI. - Encounter Subjective/Patient's Story: Patient developed dysuria and got started on Bactrim for UTI by her PCP. She took it for 3 days and each day was weaker, developed lethargy, nausea and 2 days of diarrhea. She came to the ER today and was found to have dehydration, JESSICA with creatinine of 6, continued bacteriuria, white blood count elevated with left shift is being admitted for sepsis, JESSICA, dehydration, and complicated UTI. Yesterday her neighbor spoke to her and pointed out that the patient was not making sense in her speech, today the patient says "I must of been delirious yesterday". When asked if the patient wants resuscitation for a cardiac arrest the patient stated "No, let nature take its course". Objective/Medical Story: As above. Goals of Care: Treat infection and full medical management for all her problems. Fill out a POLST form indicating DNR/DNI. Plan: I will change the Code status to DNR. Code Status: Do Not Attempt Resuscitation Time spent on advance care plannin min
--- NOTE | 2019-08-09 23:06 | HISTORY & PHYSICAL EXAMINATION ---
DATE OF SERVICE: 08/09/2019 Physician: Caitlin Mcgarry MD HISTORY OF PRESENT ILLNESS: This is an 78-year-old white female who lives alone, has a history of hypertension and GERD. Three days ago, she developed dysuria and presented to her PCP and was diagnosed with a UTI and sent home with Bactrim. She started to get weak with this, felt nauseated and lightheaded, then got lethargic and also started to have diarrhea. It is unknown if she had a fever. Because of daily worsening of her weakness, she presented to the emergency room today. Lab workup shows that she has a creatinine of 6.1, potassium of 3.7 and still has an abnormal urinalysis showing bacteriuria. The patient is being admitted for JESSICA and complicated UTI. PAST MEDICAL HISTORY 1. Hypertension. 2. GERD. ALLERGIES: NONE, EXCEPT WHEN SHE RECEIVED HER FIRST DOSE OF IV ANTIBIOTIC OF CEFTRIAXONE IN THE ER TODAY, SHE DEVELOPED A RASH AND "FELT FUNNY ALL OVER" AND SHE IS CONSIDERED NOW HAVE A PRESUMED ALLERGY TO CEPHALOSPORINS. MEDICATIONS 1. Lisinopril 40 mg every night. 2. Possibly on HCTZ. FAMILY HISTORY: No inherited diseases. SOCIAL HISTORY: The patient lives alone, she has friends and children close that help her. She is a nonsmoker, drinks no alcohol. There is no illicit drug use history. REVIEW OF SYSTEMS: The patient denies any dyspnea on exertion, orthopnea, leg edema. She is not sure if she had a fever. There is no further dysuria after treatment with Bactrim for three days. She has never had palpitations or syncope. She has never had this type of presentation before. She developed a cough just one day ago. A comprehensive review of systems was performed and the pertinent positives are listed, the rest are negative. PHYSICAL EXAMINATION GENERAL: White female who appears younger than her age. She is in no distress, supine in bed. VITAL SIGNS: Blood pressure 101/58, heart rate 100 in sinus rhythm, afebrile, room air saturation 99%. HEENT: Shows dry oral mucosa and sunken eyes. NECK: Without JVD in a supine position. CHEST: Clear anteriorly. HEART: Heart sounds normal. ABDOMEN: Soft, nontender. Normal bowel sounds. EXTREMITIES: No clubbing, cyanosis, edema. NEUROLOGIC: Grossly intact; however, she is asking the same question several times, suggesting that she still has some confusion or delirium. LABORATORY VALUES: Sodium 129, potassium 3.7, anion gap 16, BUN 79, creatinine 6.1. Lactic acid 1.2. Magnesium 2.5. Normal liver tests. Albumin 2.5. White blood count 17.8 with a left shift, hemoglobin 12 with MCV of 80, platelet count 155. No INR was done. Urine tox screen showed negative for everything and no alcohol. Urinalysis showed protein in the urine, moderate occult blood, large leukocyte esterase, and many bacteria. IMAGING: Imaging of the head showed no acute findings; however, there was mild chronic small vessel ischemia changes reported. Chest x-ray: No active pulmonary disease and normal heart size. No EKG was done. IMPRESSION/DIAGNOSES: 1. Sepsis, by virtue of infection, abnormal labs and abnormal vital signs. 2. Acute kidney injury. 3. Complicated urinary tract infection. 4. Cough. 5. COVID suspected. 6. Hypokalemia. 7. Hyponatremia. 8. Altered mental status with delirium, worse yesterday and already improved since admission on IV fluids. 9. Ceftriaxone allergy, with reaction to this in ER. 10. Microcytosis. 11. Diarrhea. PLAN: Admit to Inpatient status, on telemetry. Continue with IV hydration for her JESSICA and follow BMP daily. Correct the low potassium carefully because of the renal failure. Evaluate her renal system for any obstruction using retroperitoneal ultrasound. Stop any further Ceftriaxone and in its place, IV aztreonam will be used empirically, awaiting urine culture, obtain blood culture. Obtain a COVID swab because of the cough and diarrhea and begin empiric Zithromax and respiratory isolation. Her delirium may be related to being uremic or if she is bacteremic or because of possible fever and dehydration. Obtain blood levels for iron studies because of the severe microcytosis. Follow her CBC daily. Check a C. difficile PCR since she has received antibiotics over the last three days, and may have C diff as the cause of the new diarrhea. Maintain contact isolation for this reason as well. CODE STATUS: DNR. DEEP VENOUS THROMBOSIS PROPHYLAXIS: SCDs. ATTESTATION: The patient is expected to be discharged or transferred to another facility within 96 hours: Yes. TD: 08/09/2019 18:54 CHANDU
[2019-08-10] MEDS: DEXTROSE 5%-0.9% NACL 1,000 ML IV SCH ×3 (00:10→15:37)
[2019-08-10] MEDS: AZTREONAM 1 GM in SODIUM CHLORIDE 0.9% MINIBAG 100 ML IV SCH ×3 (00:15→15:37)
[2019-08-10] MEDS: SODIUM CHLORIDE FLUSH 0.9% 10 ML SYRINGE IVP SCH ×3 (00:18→17:01)
[2019-08-10] MEDS: ACETAMINOPHEN 325 MG TABLET PO PRN ×2 (00:37→14:50)
[2019-08-10 05:47] LABS: BASOPHILS # (AUTO) 0.1 10^3/uL (0.0-0.1); BASOPHILS % (AUTO) 0.5 %; EOSINOPHILS # (AUTO) 0.3 10^3/uL (0.0-0.7); EOSINOPHILS % (AUTO) 3.1 %; HGB - HEMOGLOBIN 9.4 g/dL (12.0-16.0); LYMPHOCYTES # (AUTO) 0.7 10^3/uL (1.5-3.5); LYMPHOCYTES % (AUTO) 6.9 %; MEAN CORPUSCULAR HEMOGLOBIN 28.4 pg (27.0-31.0); MEAN CORPUSCULAR HGB CONC 35.6 g/dL (32.0-36.0); MEAN CORPUSCULAR VOLUME 79.8 fL (81.0-99.0); MEAN PLATELET VOLUME 11.1 fL (7.9-10.8); MONOCYTES % (AUTO) 10.4 %; NEUTROPHILS # (AUTO) 7.3 10^3/uL (1.5-6.6); NEUTROPHILS % (AUTO) 77.9 %; PLT - PLATELET COUNT 133 10^3/uL (130-450); RED BLOOD COUNT 3.31 10^6/uL (4.20-5.40); RED CELL DISTRIBUTION WIDTH 15.2 % (12.0-15.0); WHITE BLOOD COUNT 9.4 x10^3/uL (4.8-10.8)
[2019-08-10 06:07] LABS: CALCIUM 7.4 mg/dL (8.5-10.3); CREATININE 5.7 mg/dL (0.4-1.0)
[2019-08-10] MEDS: AZITHROMYCIN 250 MG TABLET PO SCH (08:43)
[2019-08-10] MEDS ORDERED: cefTRIAXone 1 GM in SODIUM CHLORIDE 0.9% MINIBAG 100 ML IV SCH (09:00)
[2019-08-10] MEDS ORDERED: AZITHROMYCIN INJ 250 MG in SODIUM CHLORIDE 0.9% 250 ML IV SCH (09:00)
[2019-08-10] MEDS: CALCIUM CARBONATE CHEW 500 MG TABLET PO PRN ×3 (12:20→18:57)
--- NOTE | 2019-08-10 15:50 | PROVIDER PROGRESS NOTE ---
Assessment/Plan - Problem List (1) Sepsis Assessment/Plan: Continue empiric IV antibiotics, Aztreonam for her UTI. Await culture results, the urine is growing a gram-negative. Continue gentle hydration (2) UTI (urinary tract infection) Qualifiers: Urinary tract infection type: acute cystitis Hematuria presence: without hematuria Qualified Code(s): N30.00 - Acute cystitis without hematuria Assessment/Plan: This patient had failed outpatient antibiotics for 3 days, she was started on Bactrim by her PCP. She has a complicated UTI by virtue of JESSICA. Retroperitoneal ultrasound was done and showed: An atrophied right kidney, compensatory hypertrophy of the left kidney, a left pelviceal ectasia, no sally hydronephrosis on the left Continue iv antibiotics. Await the culture results. Continue gentle hydration. (3) JESSICA (acute kidney injury) Assessment/Plan: She has slight improvement in creatinine from 6.1>> 5.7. In looking back at old labs, she had normal creatinines of 0.9 in her past The retroperitoneal ultrasound showed an atrophic right kidney, abnormality of the left with compensatory hypertrophy plus pelviceal ectasia but no hydronephrosis. She may need a Nephrology consult for further guidance. Continue iv hydration, which appears to be helping. Avoid nephrotoxins. Follow BMP daily. If there is no renal improvement, consider transferring to a hospital with higher level of care and Nephrology. (4) Hyponatremia Assessment/Plan: She has minimal improvement with IV normal saline. Continue with this plan. Consider spot urine check for possible SIADH diagnosis or salt-losing ne phropathy diagnosis. Follow BMP daily. (5) Cough Assessment/Plan: The pt admitted to a cough when questioned at admission, a COVID test was done and is neg. Will stop isolation. She is not SOB. Will get F/U CXR tomorrow, since she may get a blossoming infiltrate on reimaging after hydrated. - Current Meds Current Meds: Current Medications Generic Name Dose Route Start Last Admin Trade Name Freq PRN Reason Stop Dose Admin Acetaminophen 650 mg 08/09/19 12:29 08/10/19 14:50 Tylenol PO 650 mg Q4HR PRN Administration Pain or Fever > 38C (100.4F) Azithromycin 250 mg 08/10/19 09:00 08/10/19 08:43 Zithromax PO 08/13/19 09:01 250 mg DAILY STEWART Administration Calcium Carbonate/Glycine 500 mg 08/10/19 11:39 08/10/19 12:29 Tums PO 500 mg ACHS PRN Administration Heartburn Dextrose/Sodium Chloride 1,000 mls @ 125 mls/hr 08/09/19 13:00 08/10/19 15:37 D5ns IV 125 mls/hr .Q8H STEWART Administration Aztreonam 1 gm/ Sodium 100 mls @ 200 mls/hr 08/09/19 16:00 08/10/19 15:37 Chloride IV 200 mls/hr Q8H STEWART Administration Sodium Chloride 10 ml 08/09/19 17:00 08/10/19 08:26 Normal Saline Flush 0.9% IVP 10 ml 0100,0900,1700 STEWART Administration - Lab Result Fish Bone Diagrams: 08/11/19 18:21 08/11/19 18:21 - Additional Planning My Orders: My Active Orders 08/09/19 16:00 Aztreonam 1 gm Sodium Chloride 0.9% Minibag [Normal Saline 0.9% Minibag] 100 ml IV Q8H 08/09/19 17:00 Sodium Chloride Flush 0.9% [Normal Saline Flush 0.9%] 10 ml IVP 0100,0900,1700 08/10/19 08:32 Isolation - Discontinue [RC] .once 08/10/19 09:00 Azithromycin [Zithromax] 250 mg PO DAILY 08/10/19 11:39 Calcium Carbonate [Tums] 500 mg PO ACHS PRN 08/10/19 Breakfast Dysphagia Puree Diet [DIET] 08/11/19 05:00 BMP - BASIC METABOLIC PANEL [CHEM] DAILYLAB CBC - COMP BLD CT W/AUTO DIFF [HEME] DAILYLAB 08/12/19 05:00 BMP - BASIC METABOLIC PANEL [CHEM] DAILYLAB CBC - COMP BLD CT W/AUTO DIFF [HEME] DAILYLAB 08/13/19 05:00 BMP - BASIC METABOLIC PANEL [CHEM] DAILYLAB CBC - COMP BLD CT W/AUTO DIFF [HEME] DAILYLAB 08/14/19 05:00 BMP - BASIC METABOLIC PANEL [CHEM] DAILYLAB CBC - COMP BLD CT W/AUTO DIFF [HEME] DAILYLAB Subjective - Subjective Patient Reports: Fatigue, Other (No diarrhea and even no BMs since being admitted.) Objective Vital Signs: Vital Signs - 24 hr 08/09/19 08/09/19 08/10/19 16:00 23:35 07:59 Temperature 36.8 C 36.5 C 36.9 C Heart Rate Heart Rate [ 76 80 74 Brachial] Respiratory 18 16 16 Rate Blood Pressure 120/59 L 120/50 L 117/51 L [Right Brachial artery] O2 Saturation 97 98 94 08/10/19 08:42 Temperature 36.9 C Heart Rate 74 Heart Rate [ Brachial] Respiratory 16 Rate Blood Pressure [Right Brachial artery] O2 Saturation 94 Oxygen O2 Source Room air I&O (Last 24 Hrs): Intake and Output Totals x24h 08/08/19 08/09/19 08/10/19 23:59 23:59 23:59 Intake Total 2795 3838.751 Output Total 775 Balance 2795 3063.751 General: Alert, Other (Appears fatigued, is napping most of the day) HEENT: Mucous membr. moist/pink Neck: Supple, No JVD Neuro: Alert, Other (Fatigued and napping most of the day) Cardiovascular: Regular rate, No murmurs Respiratory: No respiratory distress Abdomen: Soft Extremities: No edema - Results Results: Laboratory Results WBC 9.4 x10^3/uL (4.8-10.8) 08/10/19 05:25 RBC 3.31 10^6/uL (4.20-5.40) L 08/10/19 05:25 Hgb 9.4 g/dL (12.0-16.0) L 08/10/19 05:25 Hct 26.4 % (37.0-47.0) L 08/10/19 05:25 MCV 79.8 fL (81.0-99.0) L 08/10/19 05:25 MCH 28.4 pg (27.0-31.0) 08/10/19 05:25 MCHC 35.6 g/dL (32.0-36.0) 08/10/19 05:25 RDW 15.2 % (12.0-15.0) H 08/10/19 05:25 Plt Count 133 10^3/uL (130-450) 08/10/19 05:25 MPV 11.1 fL (7.9-10.8) H 08/10/19 05:25 Neut # (Auto) 7.3 10^3/uL (1.5-6.6) H 08/10/19 05:25 Lymph # (Auto) 0.7 10^3/uL (1.5-3.5) L 08/10/19 05:25 Nash # (Auto) 1.0 10^3/uL (0.0-1.0) 08/10/19 05:25 Eos # (Auto) 0.3 10^3/uL (0.0-0.7) 08/10/19 05:25 Baso # (Auto) 0.1 10^3/uL (0.0-0.1) 08/10/19 05:25 Absolute Nucleated RBC 0.00 x10^3/uL 08/10/19 05:25 Nucleated RBC % 0.0 /100WBC 08/10/19 05:25 Sodium 131 mmol/L (135-145) L 08/10/19 05:25 Potassium 3.4 mmol/L (3.5-5.0) L 08/10/19 05:25 Chloride 102 mmol/L (101-111) 08/10/19 05:25 Carbon Dioxide 18 mmol/L (21-32) L 08/10/19 05:25 Anion Gap 11.0 (6-13) 08/10/19 05:25 BUN 80 mg/dL (6-20) H* 08/10/19 05:25 Creatinine 5.7 mg/dL (0.4-1.0) H 08/10/19 05:25 Estimated GFR (MDRD) 7 (>89) L 08/10/19 05:25 Glucose 97 mg/dL (70-100) 08/10/19 05:25 Lactic Acid 1.2 mmol/L (0.5-2.2) 08/09/19 10:20 Calcium 7.4 mg/dL (8.5-10.3) L 08/10/19 05:25 Magnesium 2.5 mg/dL (1.7-2.8) 08/09/19 10:20 Iron 8 ug/dL (28-170) L 08/10/19 05:25 TIBC 146 ug/dL (250-450) L 05/10/20 05:25 % Saturation 5 % (20-50) L 08/10/19 05:25 Transferrin 104 mg/dL (192-382) L 08/10/19 05:25 Total Bilirubin 1.1 mg/dL (0.2-1.0) H 08/09/19 10:20 AST 39 IU/L (10-42) 08/09/19 10:20 ALT 24 IU/L (10-60) 08/09/19 10:20 Alkaline Phosphatase 89 IU/L (42-121) 08/09/19 10:20 Total Protein 6.2 g/dL (6.7-8.2) L 08/09/19 10:20 Albumin 2.5 g/dL (3.2-5.5) L 08/09/19 10:20 Globulin 3.7 g/dL (2.1-4.2) 08/09/19 10:20 Albumin/Globulin Ratio 0.7 (1.0-2.2) L 08/09/19 10:20 Lipase 22 U/L (22-51) 08/09/19 10:20 Urine Color YELLOW 08/09/19 10:47 Urine Clarity CLOUDY (CLEAR) 08/09/19 10:47 Urine pH 6.0 PH (5.0-7.5) 08/09/19 10:47 Ur Specific [place] 1.010 (1.002-1.030) 08/09/19 10:47 Urine Protein 30 mg/dL (NEGATIVE) H 08/09/19 10:47 Urine Glucose (UA) NEGATIVE mg/dL (NEGATIVE) 08/09/19 10:47 Urine Ketones NEGATIVE mg/dL (NEGATIVE) 08/09/19 10:47 Urine Occult Blood MODERATE (NEGATIVE) H 08/09/19 10:47 Urine Nitrite NEGATIVE (NEGATIVE) 08/09/19 10:47 Urine Bilirubin NEGATIVE (NEGATIVE) 08/09/19 10:47 Urine Urobilinogen 0.2 (NORMAL) E.U./dL (NORMAL) 08/09/19 10:47 Ur Leukocyte Esterase LARGE (NEGATIVE) H 08/09/19 10:47 Urine RBC TNTC /HPF (0-5) H 08/09/19 10:47 Urine WBC >25 /HPF (0-5) H 08/09/19 10:47 Ur Squamous Epith Cells FEW Squamous (<= Few) 08/09/19 10:47 Urine Bacteria Many /HPF (None Seen) H 08/09/19 10:47 Ur Microscopic Review INDICATED 08/09/19 10:47 Urine Culture Comments INDICATED 08/09/19 10:47 Urine Opiates Screen NEGATIVE (NEGATIVE) 08/09/19 10:47 Ur Oxycodone Screen NEGATIVE (NEGATIVE) 08/09/19 10:47 Urine Methadone Screen NEGATIVE (NEGATIVE) 08/09/19 10:47 Ur Propoxyphene Screen NEGATIVE (NEGATIVE) 08/09/19 10:47 Ur Barbiturates Screen NEGATIVE (NEGATIVE) 08/09/19 10:47 Ur Tricyclics Screen NEGATIVE (NEGATIVE) 08/09/19 10:47 Ur Phencyclidine Scrn NEGATIVE (NEGATIVE) 08/09/19 10:47 Ur Amphetamine Screen NEGATIVE (NEGATIVE) 08/09/19 10:47 U Methamphetamines Scrn NEGATIVE (NEGATIVE) 08/09/19 10:47 U Benzodiazepines Scrn NEGATIVE (NEGATIVE) 08/09/19 10:47 Urine Cocaine Screen NEGATIVE (NEGATIVE) 08/09/19 10:47 U Cannabinoids Screen NEGATIVE (NEGATIVE) 08/09/19 10:47 Ethyl Alcohol < 5.0 mg/dL 08/09/19 10:20 Coronavirus (PCR) NEGATIVE 08/09/19 15:45 - Procedures Procedures: Procedures ENDO RECTUM POLYPECTOMY (11/30/14)
[2019-08-11] MEDS: CALCIUM CARBONATE CHEW 500 MG TABLET PO PRN (00:13)
[2019-08-11] MEDS: AZTREONAM 1 GM in SODIUM CHLORIDE 0.9% MINIBAG 100 ML IV SCH ×3 (00:17→16:24)
[2019-08-11] MEDS ORDERED: hydrALAZINE INJ 20 MG/ML VIAL IVP PRN (00:48)
[2019-08-11] MEDS: DEXTROSE 5%-0.9% NACL 1,000 ML IV SCH ×5 (02:16→19:50)
[2019-08-11] MEDS: SODIUM CHLORIDE FLUSH 0.9% 10 ML SYRINGE IVP SCH ×4 (03:58→17:43)
[2019-08-11 04:47] LABS: GASTROCCULT POSITIVE (Negative)
[2019-08-11 05:52] LABS: BASOPHILS % (AUTO) 0.3 %; EOSINOPHILS # (AUTO) 0.1 10^3/uL (0.0-0.7); EOSINOPHILS % (AUTO) 1.1 %; HGB - HEMOGLOBIN 9.1 g/dL (12.0-16.0); LYMPHOCYTES # (AUTO) 0.6 10^3/uL (1.5-3.5); LYMPHOCYTES % (AUTO) 5.6 %; MEAN CORPUSCULAR HEMOGLOBIN 28.2 pg (27.0-31.0); MEAN CORPUSCULAR HGB CONC 35.3 g/dL (32.0-36.0); MEAN CORPUSCULAR VOLUME 79.9 fL (81.0-99.0); MEAN PLATELET VOLUME 11.3 fL (7.9-10.8); MONOCYTES % (AUTO) 9.3 %; NEUTROPHILS # (AUTO) 8.8 10^3/uL (1.5-6.6); NEUTROPHILS % (AUTO) 81.9 %; PLT - PLATELET COUNT 118 10^3/uL (130-450); RED BLOOD COUNT 3.23 10^6/uL (4.20-5.40); RED CELL DISTRIBUTION WIDTH 15.7 % (12.0-15.0); WHITE BLOOD COUNT 10.7 x10^3/uL (4.8-10.8)
[2019-08-11 06:05] LABS: CALCIUM 7.4 mg/dL (8.5-10.3); CREATININE 6.1 mg/dL (0.4-1.0)
[2019-08-11] MEDS ORDERED: SODIUM CHLORIDE 0.9% 1,000 ML IV ONE (06:55)
[2019-08-11] MEDS: AZITHROMYCIN 250 MG TABLET PO SCH (09:27)
--- NOTE | 2019-08-11 11:49 | XRAY Report ---
Reason: cough, wheezing, SOB Procedure Date: 08/11/2019 Accession Number: [id number] / [id number] Procedure: XR - Chest 1 View X-Ray CPT Code: 86151 Final Report FULL RESULT: EXAM: CHEST RADIOGRAPHY EXAM DATE: 08/11/2019 11:38 AM. CLINICAL HISTORY: Cough, wheezing, shortness of breath. COMPARISON: CHEST 1 VIEW 08/09/2019 3:01 PM. TECHNIQUE: 1 view. FINDINGS: Lungs/Pleura: Small bilateral pleural effusions with adjacent opacity. No pneumothorax. Mediastinum: Atherosclerotic aortic calcification. Other: Bilateral shoulder degenerative changes. IMPRESSION: 1. Small bilateral pleural effusions with adjacent atelectasis and potential airspace disease. RADIA
[2019-08-11 12:11] LABS: HGB - HEMOGLOBIN 7.9 g/dL (12.0-16.0); MEAN CORPUSCULAR HEMOGLOBIN 28.6 pg (27.0-31.0); MEAN CORPUSCULAR HGB CONC 34.3 g/dL (32.0-36.0); MEAN CORPUSCULAR VOLUME 83.3 fL (81.0-99.0); RED BLOOD COUNT 2.76 10^6/uL (4.20-5.40); WHITE BLOOD COUNT 10.5 x10^3/uL (4.8-10.8)
[2019-08-11] MEDS ORDERED: PROCHLORPERAZINE 10 MG/2 ML VIAL IVP PRN (12:38)
--- NOTE | 2019-08-11 13:13 | CT Report ---
Reason: sepsis, E coli UTI, JESSICA, eval for pyeloneph Procedure Date: 08/11/2019 Accession Number: [id number] / [id number] Procedure: CT - Abdomen/Pelvis WO CPT Code: Final Report FULL RESULT: EXAM: CT ABDOMEN AND PELVIS (CT KUB) EXAM DATE: 08/11/2019 12:32 PM. CLINICAL HISTORY: Sepsis, E. coli urinary tract infection, acute kidney injury, evaluate for pyeloneph. COMPARISONS: RENAL/BLADDER 04/25/2006 9:47 AM RETROPERITONEAL 01/24/2017 10:16 AM RETROPERITONEAL 08/09/2019 3:18 PM. TECHNIQUE: Routine axial helical CT imaging was performed through the abdomen and pelvis without IV contrast. Reconstructions: Coronal and sagittal. In accordance with CT protocol optimization, one or more of the following dose reduction techniques were utilized for this exam: automated exposure control, adjustment of mA and/or KV based on patient size, or use of iterative reconstructive technique. FINDINGS: Lung Bases: Bilateral moderate pleural fluid collections with associated atelectasis. Right Kidney/Ureter: The right kidney is severely atrophic, without hydronephrosis. Scattered small cortical calcifications are seen. No abnormal dilatation of the right ureter. Left Kidney/Ureter: There is fullness of the left renal collecting system. There is a punctate calcification within the proximal left ureter immediately distal to the UVJ, image 3/51. The more distal left ureter is unremarkable. Other Solid Organs: 1 cm cyst left hepatic lobe. No dilatation of the gallbladder. The spleen, pancreas, and adrenal glands appear within normal limits. Gallbladder/Bile Ducts: Unremarkable. Peritoneal Cavity: There are a few scattered diverticuli of the colon. The appendix is not discretely seen. No bowel obstruction. No evidence of colitis or diverticulitis. No ascites identified. Pelvic Organs: Imaging of the lower pelvis partially obscured secondary to beam hardening artifact from previous total left hip arthroplasty. The imaged portion of the urinary bladder appears within normal limits. Vasculature: Unremarkable. Other: Subcutaneous fat stranding seen bilaterally suggesting increased fluid status. IMPRESSION: Fullness of the left renal collecting system similar to most recent ultrasound. There is a punctate nephrolith indicated within the very proximal left ureter, possibly an incidental finding. No obstructing calculus detected. No visible abscess. RADIA
[2019-08-11] MEDS: ONDANSETRON 4 MG/2 ML VIAL IVP PRN (13:34)
[2019-08-11] MEDS ORDERED: MORPHINE 2 MG/ML CARPUJECT IVP SCH (13:50)
[2019-08-11] MEDS ORDERED: IPRATROPIUM/ALBUTEROL 3 ML NEB INH ONE (13:56)
[2019-08-11] MEDS ORDERED: IPRATROPIUM 0.2 MG/ML NEB INH PRN (14:03)
[2019-08-11] MEDS: PANTOPRAZOLE 40 MG VIAL IVP SCH ×2 (14:06→21:10)
[2019-08-11] MEDS ORDERED: ALBUTEROL NEB 2.5 MG/3 ML INH PRN (15:00)
--- NOTE | 2019-08-11 18:41 | PROVIDER PROGRESS NOTE ---
Assessment/Plan - Problem List (1) Dyspnea Assessment/Plan: Patient became acutely dyspneic this afternoon just after vomiting which raises the concern for aspiration. She then started to have wheezing, tachypnea, desaturated to 88%, required increase of supplemental oxygen to Oxymizer and a nebulizer treatment. She will be moved to the ICU. (2) Pleural effusion Assessment/Plan: The patient appears intravascularly depleted however has a pleural effusion which is adding to her dyspnea. We will hold off in any diuretics because of the renal failure. 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 (3) Sepsis Assessment/Plan: She has had no fever since being admitted, the white blood count is improving, she remains tachycardic, especially when in distress. The blood cultures remain negative. The urine culture is growing E. coli. The sensitivities are available. The Bactrim which she had been sent home on is not a sensitive antibiotic for this E. coli. 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 No ceftriaxone is being used because of her allergic reaction that she had in the ER after the first dose. (4) UTI (urinary tract infection) Qualifiers: Urinary tract infection type: acute cystitis Hematuria presence: without hematuria Qualified Code(s): N30.00 - Acute cystitis without hematuria Assessment/Plan: The urine is growing E. coli. Sensitivities were checked, she is on Aztreonam which is appropriate, I reviewed this with the pharmacist. Ceftriaxone was given in the ER for first treatment but she developed an allergic reaction to this with a body rash. (5) JESSICA (acute kidney injury) Assessment/Plan: The creatinine had improved to 6.1-5.7 then today up again to 6.1. We will obtain abdominal CT imaging to confirm if the retroperitoneal ultrasound was correct, rule out abscess, pyelonephritis, hydronephrosis, stone. Continue IV fluids. Follow BMP q12h. Will be moved to the ICU today. Patient may need Nephrology guidance or transfer to a hospital with higher level of care that has nephrology (6) N&V (nausea and vomiting) Qualifiers: Vomiting type: hematemesis Qualified Code(s): K92.0 - Hematemesis Assessment/Plan: At admission the patient had reported 2 days of nausea and vomiting and diarrhea. She has ruled out for COVID. Perhaps she has viral gastroenteritis since the N/V and diarrhea have recurred again today Antiemetics had not been ordered until today, Zofran IV and Compazine IV to be started. Continue with gentle IV hydration. There is concerned that she may have aspirated because of 2 episodes of vomiting, a chest x-ray was ordered, her bilateral infiltrates are worse and there are new pleural effusions. Concerned that she may have nausea and vomiting from a cardiac event therefore troponins and EKG have been ordered. Will change her diet to clear liquid diet. NG tube for decompression of the stomach and bowel rest. CT imaging not only for the kidneys but also stomach and intestines to rule out ileus or obstruction. She will be transferred to the ICU. (7) Upper GI bleed Assessment/Plan: The first vomitus was tested for heme and it was positive. We will start IV twice daily Protonix. We will change her diet to liquids. Follow H&H every 12 hours. She may need a General Surgery consult for an EGD, however with her change to critical condition today and worsening uremia, she may be excessively high risk for anesthesia to sedate her for the EGD. (8) Anemia Assessment/Plan: Partly hemo-dilutional but also possible GI blood loss anemia. Follow CBC every 12 hours. Transfuse if hemoglobin under 7 and she is symptomatic. (9) Hyponatremia Assessment/Plan: Continue gentle saline rehydration. Follow BMP every 12h. (10) Acute delirium Assessment/Plan: The patient has no fever. Her BUN and creatinine did worsen today therefore possible uremia is the cause. Order neurochecks in the ICU. - Current Meds Current Meds: Current Medications Generic Name Dose Route Start Last Admin Trade Name Freq PRN Reason Stop Dose Admin Acetaminophen 650 mg 08/09/19 12:29 08/10/19 14:50 Tylenol PO 650 mg Q4HR PRN Administration Pain or Fever > 38C (100.4F) Calcium Carbonate/Glycine 500 mg 08/10/19 11:39 08/11/19 00:13 Tums PO 500 mg ACHS PRN Administration Heartburn Hydralazine HCl 10 mg 08/11/19 00:48 08/11/19 01:11 Apresoline Inj IVP 10 mg Q4H PRN Administration PER PHYSICIAN ORDER Aztreonam 1 gm/ Sodium 100 mls @ 200 mls/hr 08/09/19 16:00 08/11/19 17:43 Chloride IV Infused Q8H STEWART Infusion Dextrose/Sodium Chloride 1,000 mls @ 150 mls/hr 08/11/19 13:28 08/11/19 14:46 D5ns IV Not Given .Q6H40M STEWART Ondansetron HCl 4 mg 08/11/19 12:36 08/11/19 13:34 Zofran Inj IVP 4 mg Q4HR PRN Administration Nausea / Vomiting Pantoprazole Sodium 40 mg 08/11/19 13:00 08/11/19 14:06 Protonix IVP 40 mg BID STEWART Administration Prochlorperazine Edisylate 10 mg 08/11/19 12:38 08/11/19 14:03 Compazine Inj IVP 10 mg Q6HR PRN Administration Nausea / Vomiting Sodium Chloride 10 ml 08/09/19 17:00 08/11/19 17:42 Normal Saline Flush 0.9% IVP 10 ml 0100,0900,1700 STEWART Administration Sodium Chloride 10 ml 08/11/19 17:00 08/11/19 17:43 Normal Saline Flush 0.9% IVP 10 ml 0100,0900,1700 STEWART Administration - Lab Result Fish Bone Diagrams: 08/11/19 18:21 08/11/19 05:37 - EKG Results EKG Interpreted Independently: Yes EKG Findings: Multifocal atrial tachycardia,Poor R wave progression, prolonged QT interval. - Additional Planning My Orders: My Active Orders 08/11/19 11:50 CUL, RESPIRATORY [RM] Urgent 08/11/19 12:36 Ondansetron Inj [Zofran Inj] 4 mg IVP Q4HR PRN 08/11/19 12:38 Prochlorperazine Inj [Compazine Inj] 10 mg IVP Q6HR PRN 08/11/19 13:00 Pantoprazole [Protonix] 40 mg IVP BID 08/11/19 13:28 Dextrose 5%-0.9% NaCl [D5ns] 1,000 ml IV 150 mls/hr 08/11/19 13:42 Nebulizer/MDI Tx. [RC] .PRN Ipratropium/Albuterol [Duoneb] 3 ml INH RTQ4H PRN 08/11/19 14:03 Blood Glucose POC [RC] 0000,0600,1200,1800 Daily Weight [RC] 0600 Rajput Insertion [RC] QSHIFT IO [RC] Q1HR Initiate ICU Electrolyte Prot. [RC] .protocol Insert NG Tube [RC] ONCE Vital Signs [RC] Q1HR Ipratropium [Atrovent] 0.5 mg INH RTQ6H PRN Sodium Chloride Flush 0.9% [Normal Saline Flush 0.9%] 10 ml IVP PRN PRN Code Status [OTHERS] Routine 08/11/19 14:04 NPO [DIET] 08/11/19 14:05 Telemetry- [RC] Q4HR 08/11/19 14:06 Oral Care - Nursing [RC] Routine Oxygen Therapy [RC] .PRN Turn and Reposition [RC] Routine 08/11/19 15:00 Albuterol 2.5 mg INH RTQ4H PRN 08/11/19 15:20 Guaiac [OCCULT BLOOD IN PAT. SINGLE] [RAPID] Routine 08/11/19 17:00 Sodium Chloride Flush 0.9% [Normal Saline Flush 0.9%] 10 ml IVP 0100,0900,1700 08/11/19 18:00 BMP - BASIC METABOLIC PANEL [CHEM] Timed CBC - COMP BLD CT W/AUTO DIFF [HEME] Routine TROPONIN I HIGH SENSITIVITY [IAI] Timed TYPE AND SCREEN Routine 08/12/19 05:00 BMP - BASIC METABOLIC PANEL [CHEM] DAILYLAB CBC - COMP BLD CT W/AUTO DIFF [HEME] DAILYLAB COMPREHENSIVE METABOLIC PANEL [CHEM] DAILYLAB 08/13/19 05:00 BMP - BASIC METABOLIC PANEL [CHEM] DAILYLAB CBC - COMP BLD CT W/AUTO DIFF [HEME] DAILYLAB COMPREHENSIVE METABOLIC PANEL [CHEM] DAILYLAB 08/14/19 05:00 BMP - BASIC METABOLIC PANEL [CHEM] DAILYLAB CBC - COMP BLD CT W/AUTO DIFF [HEME] DAILYLAB COMPREHENSIVE METABOLIC PANEL [CHEM] DAILYLAB 08/15/19 05:00 COMPREHENSIVE METABOLIC PANEL [CHEM] DAILYLAB Subjective - Subjective Patient Reports: Nausea (Patient had one episode of vomiting of 600 cc of coffee grounds very early this morning, another episode of 700 cc at midday.), Shortness of Breath (The RN noted that the patient had tachypnea and reported "I have had wheezing before". The patient was swatting away at a nebulizer treatment, appeared confused.) Nursing Reports: Confused Objective Vital Signs: Vital Signs - 24 hr 08/10/19 08/11/19 08/11/19 23:35 00:27 00:29 Temperature 36.8 C 36.7 C Heart Rate [ 86 Brachial] Respiratory 18 Rate Blood Pressure Blood Pressure 172/85 H [Right Brachial artery] O2 Saturation 96 98 08/11/19 08/11/19 08/11/19 00:35 00:40 01:11 Temperature Heart Rate [ 86 Brachial] Respiratory Rate Blood Pressure 173/75 H Blood Pressure 176/68 H 180/69 H [Right Brachial artery] O2 Saturation 08/11/19 08/11/19 08/11/19 01:20 01:25 01:30 Temperature Heart Rate [ 101 H 95 103 H Brachial] Respiratory Rate Blood Pressure Blood Pressure 155/97 H 160/73 H 137/76 H [Right Brachial artery] O2 Saturation 08/11/19 08/11/19 08/11/19 01:41 01:45 02:00 Temperature Heart Rate [ 95 86 Brachial] Respiratory Rate Blood Pressure 139/61 H Blood Pressure 139/69 H 123/85 H [Right Brachial artery] O2 Saturation 08/11/19 08/11/19 08/11/19 02:15 05:00 05:05 Temperature Heart Rate [ 88 73 Brachial] Respiratory Rate Blood Pressure Blood Pressure 106/82 H 95/66 113/75 [Right Brachial artery] O2 Saturation 08/11/19 08/11/19 08/11/19 05:30 06:00 06:30 Temperature Heart Rate [ 97 92 104 H Brachial] Respiratory Rate Blood Pressure Blood Pressure 103/58 L 121/61 132/66 H [Right Brachial artery] O2 Saturation 08/11/19 08/11/19 08/11/19 08:00 14:08 15:00 Temperature 37.0 C 36.8 C Heart Rate [ 104 H 114 H 113 H Brachial] Respiratory 16 22 16 Rate Blood Pressure Blood Pressure 129/62 110/55 L 100/44 L [Right Brachial artery] O2 Saturation 97 99 99 08/11/19 08/11/19 08/11/19 16:00 17:00 18:00 Temperature 36.7 C 36.7 C 37.4 C Heart Rate [ 104 H 99 105 H Brachial] Respiratory 16 14 14 Rate Blood Pressure Blood Pressure 99/54 L 92/48 L 109/56 L [Right Brachial artery] O2 Saturation 100 99 4 L Oxygen O2 Source Nasal cannula I&O (Last 24 Hrs): Intake and Output Totals x24h 08/09/19 08/10/19 08/11/19 23:59 23:59 23:59 Intake Total 2795 4760.751 3593.750 Output Total 1425 2800 Balance 2795 3335.751 793.750 General: Moderate distress (Tachypneic and audible wheezing standing next to her bed), Other (Appears lethargic, fidgety, pulling at things.) HEENT: Other (Dry mucous membranes and poor dental hygiene) Neck: Supple Neuro: Other (Appears lethargic and fidgety) Cardiovascular: Regular rate, No murmurs Respiratory: Wheezes, Other (Diminished breath sounds at bases) Abdomen: Soft, Other (No guarding) Rectal: Other Extremities: No edema - Results Results: Laboratory Results WBC 10.5 x10^3/uL (4.8-10.8) 08/11/19 12:05 RBC 2.76 10^6/uL (4.20-5.40) L 08/11/19 12:05 Hgb 7.9 g/dL (12.0-16.0) L 08/11/19 12:05 Hct 23.0 % (37.0-47.0) L 08/11/19 12:05 MCV 83.3 fL (81.0-99.0) 08/11/19 12:05 MCH 28.6 pg (27.0-31.0) 08/11/19 12:05 MCHC 34.3 g/dL (32.0-36.0) 08/11/19 12:05 RDW 16.0 % (12.0-15.0) H 08/11/19 12:05 Plt Count 143 10^3/uL (130-450) 08/11/19 12:05 MPV 11.0 fL (7.9-10.8) H 08/11/19 12:05 Neut # (Auto) 8.8 10^3/uL (1.5-6.6) H 08/11/19 05:37 Lymph # (Auto) 0.6 10^3/uL (1.5-3.5) L 08/11/19 05:37 [place] # (Auto) 1.0 10^3/uL (0.0-1.0) 08/11/19 05:37 Eos # (Auto) 0.1 10^3/uL (0.0-0.7) 08/11/19 05:37 Baso # (Auto) 0.0 10^3/uL (0.0-0.1) 08/11/19 05:37 Absolute Nucleated RBC 0.00 x10^3/uL 08/11/19 05:37 Nucleated RBC % 0.0 /100WBC 08/11/19 05:37 Sodium 131 mmol/L (135-145) L 08/11/19 05:37 Potassium 3.8 mmol/L (3.5-5.0) 08/11/19 05:37 Chloride 102 mmol/L (101-111) 08/11/19 05:37 Carbon Dioxide 17 mmol/L (21-32) L 08/11/19 05:37 Anion Gap 12.0 (6-13) 08/11/19 05:37 BUN 95 mg/dL (6-20) H* 08/11/19 05:37 Creatinine 6.1 mg/dL (0.4-1.0) H 08/11/19 05:37 Estimated GFR (MDRD) 7 (>89) L 08/11/19 05:37 Glucose 118 mg/dL (70-100) H 08/11/19 05:37 POC Whole Bld Glucose 113 mg/dL (70 - 100) H 08/11/19 18:30 Lactic Acid 1.2 mmol/L (0.5-2.2) 08/09/19 10:20 Calcium 7.4 mg/dL (8.5-10.3) L 08/11/19 05:37 Magnesium 2.5 mg/dL (1.7-2.8) 08/09/19 10:20 Iron 8 ug/dL (28-170) L 08/10/19 05:25 TIBC 146 ug/dL (250-450) L 08/10/19 05:25 % Saturation 5 % (20-50) L 08/10/19 05:25 Transferrin 104 mg/dL (192-382) L 08/10/19 05:25 Total Bilirubin 1.1 mg/dL (0.2-1.0) H 08/09/19 10:20 AST 39 IU/L (10-42) 08/09/19 10:20 ALT 24 IU/L (10-60) 08/09/19 10:20 Alkaline Phosphatase 89 IU/L (42-121) 08/09/19 10:20 Troponin I High Sens 86.7 ng/L (2.3-14.8) H* 08/11/19 14:00 Total Protein 6.2 g/dL (6.7-8.2) L 08/09/19 10:20 Albumin 2.5 g/dL (3.2-5.5) L 08/09/19 10:20 Globulin 3.7 g/dL (2.1-4.2) 08/09/19 10:20 Albumin/Globulin Ratio 0.7 (1.0-2.2) L 08/09/19 10:20 Lipase 22 U/L (22-51) 08/09/19 10:20 Urine Color YELLOW 08/09/19 10:47 Urine Clarity CLOUDY (CLEAR) 08/09/19 10:47 Urine pH 6.0 PH (5.0-7.5) 08/09/19 10:47 Ur Specific [place] 1.010 (1.002-1.030) 08/09/19 10:47 Urine Protein 30 mg/dL (NEGATIVE) H 08/09/19 10:47 Urine Glucose (UA) NEGATIVE mg/dL (NEGATIVE) 08/09/19 10:47 Urine Ketones NEGATIVE mg/dL (NEGATIVE) 08/09/19 10:47 Urine Occult Blood MODERATE (NEGATIVE) H 08/09/19 10:47 Urine Nitrite NEGATIVE (NEGATIVE) 08/09/19 10:47 Urine Bilirubin NEGATIVE (NEGATIVE) 08/09/19 10:47 Urine Urobilinogen 0.2 (NORMAL) E.U./dL (NORMAL) 08/09/19 10:47 Ur Leukocyte Esterase LARGE (NEGATIVE) H 08/09/19 10:47 Urine RBC TNTC /HPF (0-5) H 08/09/19 10:47 Urine WBC >25 /HPF (0-5) H 08/09/19 10:47 Ur Squamous Epith Cells FEW Squamous (<= Few) 08/09/19 10:47 Urine Bacteria Many /HPF (None Seen) H 08/09/19 10:47 Ur Microscopic Review INDICATED 08/09/19 10:47 Urine Culture Comments INDICATED 08/09/19 10:47 Nasal Screen MRSA (PCR) NEGATIVE (NEGATIVE) 08/11/19 15:00 Gastric Fluid pH 3.0 08/11/19 04:25 Gastric Occult Blood POSITIVE (Negative) A 08/11/19 04:25 Stl Occult Blood (IFOB) POSITIVE (NEGATIVE) A 08/11/19 12:30 Stl C. diff Tox B Gene NEGATIVE (NEGATIVE) 08/11/19 12:30 Urine Opiates Screen NEGATIVE (NEGATIVE) 08/09/19 10:47 Ur Oxycodone Screen NEGATIVE (NEGATIVE) 08/09/19 10:47 Urine Methadone Screen NEGATIVE (NEGATIVE) 08/09/19 10:47 Ur Propoxyphene Screen NEGATIVE (NEGATIVE) 08/09/19 10:47 Ur Barbiturates Screen NEGATIVE (NEGATIVE) 08/09/19 10:47 Ur Tricyclics Screen NEGATIVE (NEGATIVE) 08/09/19 10:47 Ur Phencyclidine Scrn NEGATIVE (NEGATIVE) 08/09/19 10:47 Ur Amphetamine Screen NEGATIVE (NEGATIVE) 08/09/19 10:47 U Methamphetamines Scrn NEGATIVE (NEGATIVE) 08/09/19 10:47 U Benzodiazepines Scrn NEGATIVE (NEGATIVE) 08/09/19 10:47 Urine Cocaine Screen NEGATIVE (NEGATIVE) 08/09/19 10:47 U Cannabinoids Screen NEGATIVE (NEGATIVE) 08/09/19 10:47 Ethyl Alcohol < 5.0 mg/dL 08/09/19 10:20 Coronavirus (PCR) NEGATIVE 08/09/19 15:45 Blood Type O POSITIVE 08/11/19 05:37 Antibody Screen NEGATIVE 08/11/19 05:37 - Procedures Procedures: Procedures ENDO RECTUM POLYPECTOMY (11/30/14)
[2019-08-11 18:49] LABS: BASOPHILS % (AUTO) 0.5 %; EOSINOPHILS % (AUTO) 0.1 %; LYMPHOCYTES % (AUTO) 2.3 %; MEAN CORPUSCULAR HEMOGLOBIN 28.7 pg (27.0-31.0); MEAN CORPUSCULAR HGB CONC 34.3 g/dL (32.0-36.0); MEAN CORPUSCULAR VOLUME 83.5 fL (81.0-99.0); MEAN PLATELET VOLUME 11.4 fL (7.9-10.8); MONOCYTES % (AUTO) 5.3 %; NEUTROPHILS % (AUTO) 89.9 %; PLT - PLATELET COUNT 124 10^3/uL (130-450); RED BLOOD COUNT 2.37 10^6/uL (4.20-5.40); RED CELL DISTRIBUTION WIDTH 16.3 % (12.0-15.0); WHITE BLOOD COUNT 23.6 x10^3/uL (4.8-10.8)
[2019-08-11 18:51] LABS: HGB - HEMOGLOBIN 6.8 g/dL (12.0-16.0)
[2019-08-11 18:53] LABS: ABNORMAL LYMPHS % (MANUAL) 0 %
[2019-08-11 19:03] LABS: BAND NEUTROPHILS % (MANUAL) 3 %; DIFFERENTIAL COMMENT MANUAL DIFFERENTIAL; LYMPHOCYTES # (MANUAL) 0.9 10^3/uL (1.5-3.5); LYMPHOCYTES % (MANUAL) 4 %; MONOCYTES # (MANUAL) 1.4 10^3/uL (0.0-1.0); PLATELET ESTIMATE, MANUAL DECREASED (<130,000) (NORMAL); PLATELET MORPHOLOGY NORMAL APPEARANCE (NORMAL); RBC MORPHOLOGY (MULTIPLE) 1+ ANISOCYTOSIS (NORMAL)
[2019-08-11 19:20] LABS: CALCIUM 7.2 mg/dL (8.5-10.3); CREATININE 6.3 mg/dL (0.4-1.0)
[2019-08-11] MEDS: SODIUM CHLORIDE FLUSH 0.9% 10 ML SYRINGE IVP PRN (21:11)
[2019-08-12] MEDS: SODIUM CHLORIDE FLUSH 0.9% 10 ML SYRINGE IVP SCH ×4 (00:58→09:15)
[2019-08-12] MEDS: AZTREONAM 1 GM in SODIUM CHLORIDE 0.9% MINIBAG 100 ML IV SCH ×2 (00:58→07:58)
[2019-08-12] MEDS: IPRATROPIUM/ALBUTEROL 3 ML NEB INH PRN ×2 (04:41→08:59)
[2019-08-12 05:17] LABS: BASOPHILS % (AUTO) 0.5 %; EOSINOPHILS % (AUTO) 0.2 %; LYMPHOCYTES % (AUTO) 11.7 %; MEAN CORPUSCULAR HEMOGLOBIN 28.7 pg (27.0-31.0); MEAN CORPUSCULAR HGB CONC 34.5 g/dL (32.0-36.0); MEAN CORPUSCULAR VOLUME 83.2 fL (81.0-99.0); MEAN PLATELET VOLUME 11.2 fL (7.9-10.8); MONOCYTES % (AUTO) 7.6 %; NEUTROPHILS % (AUTO) 78.3 %; PLT - PLATELET COUNT 139 10^3/uL (130-450); RED BLOOD COUNT 2.79 10^6/uL (4.20-5.40); RED CELL DISTRIBUTION WIDTH 16.1 % (12.0-15.0); WHITE BLOOD COUNT 21.2 x10^3/uL (4.8-10.8)
[2019-08-12] MEDS: SODIUM CHLORIDE FLUSH 0.9% 10 ML SYRINGE IVP PRN ×2 (05:20→06:37)
[2019-08-12] MEDS: DEXTROSE 5%-0.9% NACL 1,000 ML IV SCH ×2 (05:22→09:28)
[2019-08-12 05:25] LABS: ABNORMAL LYMPHS % (MANUAL) 0 %; BAND NEUTROPHILS % (MANUAL) 0 %
[2019-08-12 05:42] LABS: LYMPHOCYTES % (MANUAL) 14 %; MONOCYTES # (MANUAL) 1.1 10^3/uL (0.0-1.0); MYELOCYTES % (MANUAL) 1 %
[2019-08-12 05:44] LABS: DIFFERENTIAL COMMENT MANUAL DIFFERENTIAL; PLATELET ESTIMATE, MANUAL NORMAL (130-450,000) (NORMAL); PLATELET MORPHOLOGY NORMAL APPEARANCE (NORMAL)
[2019-08-12 05:45] LABS: ALBUMIN 1.7 g/dL (3.2-5.5); ALBUMIN/GLOBULIN RATIO 0.5 (1.0-2.2); BILIRUBIN,TOTAL 0.6 mg/dL (0.2-1.0); CALCIUM 7.4 mg/dL (8.5-10.3); CREATININE 6.2 mg/dL (0.4-1.0); TOTAL PROTEIN 4.9 g/dL (6.7-8.2)
[2019-08-12] MEDS ORDERED: SODIUM CHLORIDE 0.9% 500 ML IV ONE (06:13)
[2019-08-12] MEDS ORDERED: SODIUM CHLORIDE 0.9% 500 ML ONE (06:16)
[2019-08-12] MEDS ORDERED: FUROSEMIDE 20 MG/2 ML VIAL IVP STA (06:18)
--- NOTE | 2019-08-12 08:03 | XRAY Report ---
Reason: wheezing, dyspnea Procedure Date: 08/12/2019 Accession Number: [id number] / [id number] Procedure: XR - Chest 1 View X-Ray CPT Code: 71570 Final Report FULL RESULT: EXAM: CHEST RADIOGRAPHY EXAM DATE: 08/12/2019 06:48 AM. CLINICAL HISTORY: Wheezing, dyspnea. COMPARISON: CHEST 1 VIEW 08/11/2019 11:04 AM. TECHNIQUE: 1 view. FINDINGS: Lungs/Pleura: Slight improvement of bibasilar infiltrates and pleural fluid collections. No acute consolidation is identified. Mediastinum: Within exam limitations, the cardiomediastinal contour is normal. Other: None. IMPRESSION: Slight improvement of aeration at the lung bases. RADIA
[2019-08-12] MEDS ORDERED: metroNIDAZOLE 500 MG/100 ML 500 MG/100 ML BAG IV SCH (09:00)
--- NOTE | 2019-08-12 09:01 | DISCHARGE SUMMARY ---
Discharge Summary Admit Date: 08/09/19 Discharge Date: 08/12/19 Discharging Provider: Devon Zelaya Primary Care Provider: Benita Muller Code Status: Do Not Attempt Resuscitation Condition at Discharge: Serious Discharge Disposition: 02 Transfer Acute Care Hosp Discharge Facility Name: [facility] - DIAGNOSES Admission Diagnoses: Acute kidney injury Urinary tract infection Cough Suspected COVID Hyponatremia Hypokalemia Altered status with delirium Allergic reaction to medications Microcytosis Diarrhea Discharge Diagnoses with Status of Each Condition: Nonoliguric acute renal failure - ongoing. No acute needs for dialysis but given declining renal function, would benefit from Nephrology evaluation. Likely secondary to NSAID use at home, dehydration, Bactrim. Urine output remains above 50 cc an hour. Upper GI bleed - ongoing. She is on Protonix IV twice daily. She has been taking Aleve and Advil at home. Acute blood loss anemia - ongoing. Required 1 unit of packed red blood cells on August 10. She is bonded appropriately with improvement of her hemoglobin to 8.0 from 6.8. Aspiration pneumonia - ongoing. Her hypoxia has nearly resolved and she is now saturating 90% on 2 L of oxygen. Chest x-ray shows improvement in her bibasilar infiltrates. She has been started on Flagyl IV. Urinary tract infection - improving. Today is day 4 of IV antibiotics with aztreonam IV. She was previously on Bactrim which the E. coli is resistant to. Allergic reaction to medication - resolved. This was after she received IV ceftriaxone and developed a rash. History of hypertension - stable. Her blood pressure has remained stable with systolic in the 120s. She has not required vasopressors. - HPI History of Present Illness: H&P per Dr. Mcgarry on 08/09/19: This is an 78-year-old white female who lives alone, has a history of hypertension and GERD. 3 days ago, she developed dysuria and presented to her PCP was diagnosed with a UTI and sent home with Bactrim. She started get weak with this, felt nauseated and lightheaded, then got lethargic and also started to have diarrhea. It is unknown if she had a fever. Because of daily worsening of her weakness, she presented to emergency room today. Lab work-up shows that she is a creatinine of 6.1, potassium 3.7 and still has an abnormal urinalysis showing bacteriuria. The patient is being admitted for JESSICA and complicated UTI. - HOSPITAL COURSE Hospital Course: She was admitted to the floor for acute renal failure and urinary tract infect ion. She was started initially on ceftriaxone IV but developed a rash and lightheadedness which was attributed to the ceftriaxone. She was then started on aztreonam IV given the concern for allergic reaction. She was also started on IV fluids given her acute renal failure. There was concern for C. difficile as she was complaining of diarrhea at home and this was negative. Despite IV fluids, her renal function has not improved and her BUN has continued to rise. Her urine output has remained above 50 cc an hour despite her renal failure. He underwent a renal ultrasound which showed mild left renal pelviectasis without hydronephrosis. He went a CT of the abdomen and pelvis on August 10 which showed a severely atrophic right kidney without hydronephrosis. There was fullness of the left renal collecting system similar to renal ultrasound. There was no obstructive stone visualized. She was tested for COVID-19 and this was negative. Urine culture grew E. coli and Aerococcus urinary. The E. coli was resistant to ampicillin, gentamicin, Bactrim. She remained on aztreonam IV. Blood cultures have been negative to date. Her white count improved with antibiotic use and IV hydration. Her hemoglobin then began to decline and she developed melena. Hemoglobin decreased from 12 down to 6.8. She required 1 unit of blood to be transfused on August 10. She started on Protonix IV twice daily. C. Diff was negative. She also had an episode of nausea and vomiting on the followed by acute respiratory distress and hypoxia. She was transferred to the intensive care unit for closer monitoring. She initially required 4 L of oxygen and this has now been weaned down to 2 L. Her white count did increase to over 23,000 after the episode of aspiration. Today it is down to 21,000. She was started on Flagyl IV empirically for concern for aspiration pneumonia. Chest x-ray showed bilateral infiltrates and x-ray prior to transfer, showed improvement in the lung bases. She was altered on admission but this improved with IV fluids. She is back to her baseline mental status at this time. Given her acute blood loss anemia and upper GI bleed, she would benefit from endoscopy. Unfortunately given her acute renal failure and possible need for dialysis, she is considered a high risk for our facility and transfer was sought out. Patient is a DNR but she would like all interventions that medical necessary including dialysis if need be. I spoke with the Gastroenerology, N ephrologist, and Hospitalist at [facility]. Dr. Jefe Titus of the Hospitalist service graciously accepted the patient in transfer. - ALLERGIES Allergies/Adverse Reactions: Allergies Allergy/AdvReac Type Severity Reaction Status Date / Time ceftriaxone Allergy Intermediate Rash Verified 08/12/19 13:05 - MEDICATIONS Home Medications: Ambulatory Orders Medication Instructions Recorded Confirmed Lisinopril 40 mg PO QPM 11/30/14 08/09/19 - PHYSICAL EXAM AT DISCHARGE General Appearance: positive: No acute distress, Alert Eyes Bilateral: positive: Normal inspection ENT: positive: ENT inspection nml, Other (Nasal cannula in place.) Respiratory: positive: No respiratory distress, Other. negative: Wheezes, Rales Cardiovascular: positive: No murmur, Tachycardia. negative: Systolic murmur, Diastolic murmur Abdomen: positive: Non-tender, Nml bowel sounds, No distention. negative: Tenderness, Guarding, Rebound Skin: positive: No rash, Warm, Dry Extremities: positive: Full ROM, No pedal edema Neurologic/Psychiatric: positive: Oriented x3, Motor nml. negative: Disoriented to person, Disoriented to place, Disoriented to time Physical Exam Other/Comments: Vital Signs - 24 hr 08/11/19 08/11/19 08/11/19 14:08 15:00 16:00 Temperature 36.8 C 36.7 C Heart Rate Heart Rate [ 114 H 113 H 104 H Brachial] Heart Rate [ Monitoring electrodes] Respiratory 22 16 16 Rate Blood Pressure Blood Pressure 110/55 L 100/44 L 99/54 L [Right Brachial artery] O2 Saturation 99 99 100 08/11/19 08/11/19 08/11/19 17:00 18:00 19:00 Temperature 36.7 C 37.4 C Heart Rate Heart Rate [ 99 105 H 82 Brachial] Heart Rate [ Monitoring electrodes] Respiratory 14 14 12 Rate Blood Pressure Blood Pressure 92/48 L 109/56 L 91/45 L [Right Brachial artery] O2 Saturation 99 99 100 08/11/19 08/11/19 08/11/19 20:00 21:00 22:00 Temperature Heart Rate Heart Rate [ Brachial] Heart Rate [ 80 89 81 Monitoring electrodes] Respiratory 12 15 14 Rate Blood Pressure Blood Pressure 92/49 L 111/56 L 103/47 L [Right Brachial artery] O2 Saturation 100 100 100 08/11/19 08/11/19 08/11/19 22:16 22:27 22:30 Temperature 37 C 37 C 37.1 C Heart Rate 83 12 L 85 Heart Rate [ Brachial] Heart Rate [ Monitoring electrodes] Respiratory 23 82 H 11 L Rate Blood Pressure 103/47 L 115/54 L 115/42 L Blood Pressure [Right Brachial artery] O2 Saturation 08/11/19 08/11/19 08/11/19 22:45 23:01 23:45 Temperature 37 C 37 C 37 C Heart Rate 72 78 79 Heart Rate [ Brachial] Heart Rate [ 78 Monitoring electrodes] Respiratory 12 12 11 L Rate Blood Pressure 97/51 L 92/49 L 101/48 L Blood Pressure 92/49 L [Right Brachial artery] O2 Saturation 100 08/12/19 08/12/19 08/12/19 00:00 00:45 00:54 Temperature 36.9 C 36.9 C 36.7 C Heart Rate 75 75 76 Heart Rate [ Brachial] Heart Rate [ 75 Monitoring electrodes] Respiratory 10 L 10 L 10 L Rate Blood Pressure 99/49 L 98/51 L 101/54 L Blood Pressure 99/49 L [Right Brachial artery] O2 Saturation 100 08/12/19 08/12/19 08/12/19 01:00 02:00 03:00 Temperature 36.7 C Heart Rate Heart Rate [ Brachial] Heart Rate [ 75 70 70 Monitoring electrodes] Respiratory 10 L 10 L 10 L Rate Blood Pressure Blood Pressure 104/54 L 90/59 L 127/59 L [Right Brachial artery] O2 Saturation 100 100 100 08/12/19 08/12/19 08/12/19 04:00 04:41 04:50 Temperature Heart Rate 87 92 Heart Rate [ Brachial] Heart Rate [ 71 Monitoring electrodes] Respiratory 12 16 18 Rate Blood Pressure Blood Pressure 104/53 L [Right Brachial artery] O2 Saturation 98 08/12/19 08/12/19 08/12/19 05:00 06:00 06:36 Temperature 36.6 C 36.7 C Heart Rate Heart Rate [ Brachial] Heart Rate [ 98 137 H 108 H Monitoring electrodes] Respiratory 20 21 13 Rate Blood Pressure Blood Pressure 120/78 126/61 110/58 L [Right Brachial artery] O2 Saturation 92 100 100 08/12/19 08/12/19 08/12/19 07:00 08:00 08:59 Temperature 36.7 C Heart Rate 92 Heart Rate [ Brachial] Heart Rate [ 97 102 H Monitoring electrodes] Respiratory 9 L 16 16 Rate Blood Pressure Blood Pressure 115/55 L 125/82 H [Right Brachial artery] O2 Saturation 99 97 Oxygen O2 Source Oxymizer - LABS Result Diagrams: 08/12/19 05:07 08/12/19 05:07 Other Lab Results: Laboratory Tests 08/09/19 08/09/19 08/09/19 10:20 10:20 10:20 WBC 17.8 H RBC 4.22 Hgb 12.0 Hct 33.8 L MCV 80.1 L MCH 28.4 MCHC 35.5 RDW 14.7 Plt Count 155 MPV 11.3 H Neut # (Auto) 16.1 H Lymph # (Auto) 0.5 L E[place] # (Auto) 0.7 Eos # (Auto) 0.2 Baso # (Auto) 0.2 H Absolute Nucleated RBC 0.00 Total Counted Band Neuts % (Manual) Abnorm Lymph % (Manual) Myelocytes % Nucleated RBC % 0.0 Neutrophils # (Manual) Lymphocytes # (Manual) Monocytes # (Manual) Eosinophils # (Manual) Basophils # (Manual) Differential Comment Manual Slide Review WBC Morphology Platelet Estimate Platelet Morphology RBC Morph Micro Appear Sodium 129 L Potassium 3.7 Chloride 93 L Carbon Dioxide 20 L Anion Gap 16.0 H BUN 79 H Creatinine 6.1 H Estimated GFR (MDRD) 7 L Glucose 64 L POC Whole Bld Glucose Lactic Acid 1.2 Calcium 8.4 L Magnesium 2.5 Iron TIBC % Saturation Transferrin Total Bilirubin 1.1 H AST 39 ALT 24 Alkaline Phosphatase 89 Troponin I High Sens Total Protein 6.2 L Albumin 2.5 L Globulin 3.7 Albumin/Globulin Ratio 0.7 L Lipase 22 Urine Color Urine Clarity Urine pH Ur Specific [place] Urine Protein Urine Glucose (UA) Urine Ketones Urine Occult Blood Urine Nitrite Urine Bilirubin Urine Urobilinogen Ur Leukocyte Esterase Urine RBC Urine WBC Ur Squamous Epith Cells Urine Bacteria Ur Microscopic Review Urine Culture Comments Nasal Screen MRSA (PCR) Gastric Fluid pH Gastric Occult Blood Stl Occult Blood (IFOB) Stl C. diff Tox B Gene Urine Opiates Screen Ur Oxycodone Screen Urine Methadone Screen Ur Propoxyphene Screen Ur Barbiturates Screen Ur Tricyclics Screen Ur Phencyclidine Scrn Ur Amphetamine Screen U Methamphetamines Scrn U Benzodiazepines Scrn Urine Cocaine Screen U Cannabinoids Screen Ethyl Alcohol < 5.0 Coronavirus (PCR) Blood Type Blood Type Recheck Antibody Screen Crossmatch IS Only 08/09/19 08/09/19 08/09/19 10:47 10:47 15:45 WBC RBC Hgb Hct MCV MCH MCHC RDW Plt Count MPV Neut # (Auto) Lymph # (Auto) [place] # (Auto) Eos # (Auto) Baso # (Auto) Absolute Nucleated RBC Total Counted Band Neuts % (Manual) Abnorm Lymph % (Manual) Myelocytes % Nucleated RBC % Neutrophils # (Manual) Lymphocytes # (Manual) Monocytes # (Manual) Eosinophils # (Manual) Basophils # (Manual) Differential Comment Manual Slide Review WBC Morphology Platelet Estimate Platelet Morphology RBC Morph Micro Appear Sodium Potassium Chloride Carbon Dioxide Anion Gap BUN Creatinine Estimated GFR (MDRD) Glucose POC Whole Bld Glucose Lactic Acid Calcium Magnesium Iron TIBC % Saturation Transferrin Total Bilirubin AST ALT Alkaline Phosphatase Troponin I High Sens Total Protein Albumin Globulin Albumin/Globulin Ratio Lipase Urine Color YELLOW Urine Clarity CLOUDY Urine pH 6.0 Ur Specific [place] 1.010 Urine Protein 30 H Urine Glucose (UA) NEGATIVE Urine Ketones NEGATIVE Urine Occult Blood MODERATE H Urine Nitrite NEGATIVE Urine Bilirubin NEGATIVE Urine Urobilinogen 0.2 (NORMAL) Ur Leukocyte Esterase LARGE H Urine RBC TNTC H Urine WBC >25 H Ur Squamous Epith Cells FEW Squamous Urine Bacteria Many H Ur Microscopic Review INDICATED Urine Culture Comments INDICATED Nasal Screen MRSA (PCR) Gastric Fluid pH Gastric Occult Blood Stl Occult Blood (IFOB) Stl C. diff Tox B Gene Urine Opiates Screen NEGATIVE Ur Oxycodone Screen NEGATIVE Urine Methadone Screen NEGATIVE Ur Propoxyphene Screen NEGATIVE Ur Barbiturates Screen NEGATIVE Ur Tricyclics Screen NEGATIVE Ur Phencyclidine Scrn NEGATIVE Ur Amphetamine Screen NEGATIVE U Methamphetamines Scrn NEGATIVE U Benzodiazepines Scrn NEGATIVE Urine Cocaine Screen NEGATIVE U Cannabinoids Screen NEGATIVE Ethyl Alcohol Coronavirus (PCR) NEGATIVE Blood Type Blood Type Recheck Antibody Screen Crossmatch IS Only 08/10/19 08/10/19 08/11/19 05:25 05:25 04:25 WBC 9.4 RBC 3.31 L Hgb 9.4 L Hct 26.4 L MCV 79.8 L MCH 28.4 MCHC 35.6 RDW 15.2 H Plt Count 133 MPV 11.1 H Neut # (Auto) 7.3 H Lymph # (Auto) 0.7 L [place] # (Auto) 1.0 Eos # (Auto) 0.3 Baso # (Auto) 0.1 Absolute Nucleated RBC 0.00 Total Counted Band Neuts % (Manual) Abnorm Lymph % (Manual) Myelocytes % Nucleated RBC % 0.0 Neutrophils # (Manual) Lymphocytes # (Manual) Monocytes # (Manual) Eosinophils # (Manual) Basophils # (Manual) Differential Comment Manual Slide Review WBC Morphology Platelet Estimate Platelet Morphology RBC Morph Micro Appear Sodium 131 L Potassium 3.4 L Chloride 102 Carbon Dioxide 18 L Anion Gap 11.0 BUN 80 H* Creatinine 5.7 H Estimated GFR (MDRD) 7 L Glucose 97 POC Whole Bld Glucose Lactic Acid Calcium 7.4 L Magnesium Iron 8 L TIBC 146 L % Saturation 5 L Transferrin 104 L Total Bilirubin AST ALT Alkaline Phosphatase Troponin I High Sens Total Protein Albumin Globulin Albumin/Globulin Ratio Lipase Urine Color Urine Clarity Urine pH Ur Specific [place] Urine Protein Urine Glucose (UA) Urine Ketones Urine Occult Blood Urine Nitrite Urine Bilirubin Urine Urobilinogen Ur Leukocyte Esterase Urine RBC Urine WBC Ur Squamous Epith Cells Urine Bacteria Ur Microscopic Review Urine Culture Comments Nasal Screen MRSA (PCR) Gastric Fluid pH 3.0 Gastric Occult Blood POSITIVE A Stl Occult Blood (IFOB) Stl C. diff Tox B Gene Urine Opiates Screen Ur Oxycodone Screen Urine Methadone Screen Ur Propoxyphene Screen Ur Barbiturates Screen Ur Tricyclics Screen Ur Phencyclidine Scrn Ur Amphetamine Screen U Methamphetamines Scrn U Benzodiazepines Scrn Urine Cocaine Screen U Cannabinoids Screen Ethyl Alcohol Coronavirus (PCR) Blood Type Blood Type Recheck Antibody Screen Crossmatch IS Only 08/11/19 08/11/19 08/11/19 05:37 05:37 05:37 WBC 10.7 RBC 3.23 L Hgb 9.1 L Hct 25.8 L MCV 79.9 L MCH 28.2 MCHC 35.3 RDW 15.7 H Plt Count 118 L MPV 11.3 H Neut # (Auto) 8.8 H Lymph # (Auto) 0.6 L [place] # (Auto) 1.0 Eos # (Auto) 0.1 Baso # (Auto) 0.0 Absolute Nucleated RBC 0.00 Total Counted Band Neuts % (Manual) Abnorm Lymph % (Manual) Myelocytes % Nucleated RBC % 0.0 Neutrophils # (Manual) Lymphocytes # (Manual) Monocytes # (Manual) Eosinophils # (Manual) Basophils # (Manual) Differential Comment Manual Slide Review WBC Morphology Platelet Estimate Platelet Morphology RBC Morph Micro Appear Sodium 131 L Potassium 3.8 Chloride 102 Carbon Dioxide 17 L Anion Gap 12.0 BUN 95 H* Creatinine 6.1 H Estimated GFR (MDRD) 7 L Glucose 118 H POC Whole Bld Glucose Lactic Acid Calcium 7.4 L Magnesium Iron TIBC % Saturation Transferrin Total Bilirubin AST ALT Alkaline Phosphatase Troponin I High Sens Total Protein Albumin Globulin Albumin/Globulin Ratio Lipase Urine Color Urine Clarity Urine pH Ur Specific [place] Urine Protein Urine Glucose (UA) Urine Ketones Urine Occult Blood Urine Nitrite Urine Bilirubin Urine Urobilinogen Ur Leukocyte Esterase Urine RBC Urine WBC Ur Squamous Epith Cells Urine Bacteria Ur Microscopic Review Urine Culture Comments Nasal Screen MRSA (PCR) Gastric Fluid pH Gastric Occult Blood Stl Occult Blood (IFOB) Stl C. diff Tox B Gene Urine Opiates Screen Ur Oxycodone Screen Urine Methadone Screen Ur Propoxyphene Screen Ur Barbiturates Screen Ur Tricyclics Screen Ur Phencyclidine Scrn Ur Amphetamine Screen U Methamphetamines Scrn U Benzodiazepines Scrn Urine Cocaine Screen U Cannabinoids Screen Ethyl Alcohol Coronavirus (PCR) Blood Type O POSITIVE Blood Type Recheck Antibody Screen NEGATIVE Crossmatch IS Only See Detail 08/11/19 08/11/19 08/11/19 12:05 12:30 12:30 WBC 10.5 RBC 2.76 L Hgb 7.9 L Hct 23.0 L MCV 83.3 MCH 28.6 MCHC 34.3 RDW 16.0 H Plt Count 143 MPV 11.0 H Neut # (Auto) Lymph # (Auto) [place] # (Auto) Eos # (Auto) Baso # (Auto) Absolute Nucleated RBC Total Counted Band Neuts % (Manual) Abnorm Lymph % (Manual) Myelocytes % Nucleated RBC % Neutrophils # (Manual) Lymphocytes # (Manual) Monocytes # (Manual) Eosinophils # (Manual) Basophils # (Manual) Differential Comment Manual Slide Review WBC Morphology Platelet Estimate Platelet Morphology RBC Morph Micro Appear Sodium Potassium Chloride Carbon Dioxide Anion Gap BUN Creatinine Estimated GFR (MDRD) Glucose POC Whole Bld Glucose Lactic Acid Calcium Magnesium Iron TIBC % Saturation Transferrin Total Bilirubin AST ALT Alkaline Phosphatase Troponin I High Sens Total Protein Albumin Globulin Albumin/Globulin Ratio Lipase Urine Color Urine Clarity Urine pH Ur Specific [place] Urine Protein Urine Glucose (UA) Urine Ketones Urine Occult Blood Urine Nitrite Urine Bilirubin Urine Urobilinogen Ur Leukocyte Esterase Urine RBC Urine WBC Ur Squamous Epith Cells Urine Bacteria Ur Microscopic Review Urine Culture Comments Nasal Screen MRSA (PCR) Gastric Fluid pH Gastric Occult Blood Stl Occult Blood (IFOB) POSITIVE A Stl C. diff Tox B Gene NEGATIVE Urine Opiates Screen Ur Oxycodone Screen Urine Methadone Screen Ur Propoxyphene Screen Ur Barbiturates Screen Ur Tricyclics Screen Ur Phencyclidine Scrn Ur Amphetamine Screen U Methamphetamines Scrn U Benzodiazepines Scrn Urine Cocaine Screen U Cannabinoids Screen Ethyl Alcohol Coronavirus (PCR) Blood Type Blood Type Recheck Antibody Screen Crossmatch IS Only 08/11/19 08/11/19 08/11/19 14:00 15:00 18:21 WBC 23.6 H RBC 2.37 L Hgb 6.8 L* Hct 19.8 L* MCV 83.5 MCH 28.7 MCHC 34.3 RDW 16.3 H Plt Count 124 L MPV 11.4 H Neut # (Auto) Not Reportable Lymph # (Auto) Not Reportable E[place] # (Auto) Not Reportable Eos # (Auto) Not Reportable Baso # (Auto) Not Reportable Absolute Nucleated RBC Not Reportable Total Counted 100 Band Neuts % (Manual) 3 Abnorm Lymph % (Manual) 0 Myelocytes % Nucleated RBC % Not Reportable Neutrophils # (Manual) 21.2 H Lymphocytes # (Manual) 0.9 L Monocytes # (Manual) 1.4 H Eosinophils # (Manual) 0.0 Basophils # (Manual) 0.0 Differential Comment MANUAL DIFFERENTIAL Manual Slide Review Indicated WBC Morphology NORMAL APPEARANCE Platelet Estimate DECREASED (<130,000) Platelet Morphology NORMAL APPEARANCE RBC Morph Micro Appear 1+ ANISOCYTOSIS Sodium Potassium Chloride Carbon Dioxide Anion Gap BUN Creatinine Estimated GFR (MDRD) Glucose POC Whole Bld Glucose Lactic Acid Calcium Magnesium Iron TIBC % Saturation Transferrin Total Bilirubin AST ALT Alkaline Phosphatase Troponin I High Sens 86.7 H* Total Protein Albumin Globulin Albumin/Globulin Ratio Lipase Urine Color Urine Clarity Urine pH Ur Specific [place] Urine Protein Urine Glucose (UA) Urine Ketones Urine Occult Blood Urine Nitrite Urine Bilirubin Urine Urobilinogen Ur Leukocyte Esterase Urine RBC Urine WBC Ur Squamous Epith Cells Urine Bacteria Ur Microscopic Review Urine Culture Comments Nasal Screen MRSA (PCR) NEGATIVE Gastric Fluid pH Gastric Occult Blood Stl Occult Blood (IFOB) Stl C. diff Tox B Gene Urine Opiates Screen Ur Oxycodone Screen Urine Methadone Screen Ur Propoxyphene Screen Ur Barbiturates Screen Ur Tricyclics Screen Ur Phencyclidine Scrn Ur Amphetamine Screen U Methamphetamines Scrn U Benzodiazepines Scrn Urine Cocaine Screen U Cannabinoids Screen Ethyl Alcohol Coronavirus (PCR) Blood Type Blood Type Recheck Antibody Screen Crossmatch IS Only 08/11/19 08/11/19 08/11/19 18:21 18:21 18:21 WBC RBC Hgb Hct MCV MCH MCHC RDW Plt Count MPV Neut # (Auto) Lymph # (Auto) [place] # (Auto) Eos # (Auto) Baso # (Auto) Absolute Nucleated RBC Total Counted Band Neuts % (Manual) Abnorm Lymph % (Manual) Myelocytes % Nucleated RBC % Neutrophils # (Manual) Lymphocytes # (Manual) Monocytes # (Manual) Eosinophils # (Manual) Basophils # (Manual) Differential Comment Manual Slide Review WBC Morphology Platelet Estimate Platelet Morphology RBC Morph Micro Appear Sodium 134 L Potassium 3.5 Chloride 105 Carbon Dioxide 17 L Anion Gap 12.0 BUN 105 H* Creatinine 6.3 H Estimated GFR (MDRD) 6 L Glucose 121 H POC Whole Bld Glucose Lactic Acid Calcium 7.2 L Magnesium Iron TIBC % Saturation Transferrin Total Bilirubin AST ALT Alkaline Phosphatase Troponin I High Sens 83.0 H* Total Protein Albumin Globulin Albumin/Globulin Ratio Lipase Urine Color Urine Clarity Urine pH Ur Specific [place] Urine Protein Urine Glucose (UA) Urine Ketones Urine Occult Blood Urine Nitrite Urine Bilirubin Urine Urobilinogen Ur Leukocyte Esterase Urine RBC Urine WBC Ur Squamous Epith Cells Urine Bacteria Ur Microscopic Review Urine Culture Comments Nasal Screen MRSA (PCR) Gastric Fluid pH Gastric Occult Blood Stl Occult Blood (IFOB) Stl C. diff Tox B Gene Urine Opiates Screen Ur Oxycodone Screen Urine Methadone Screen Ur Propoxyphene Screen Ur Barbiturates Screen Ur Tricyclics Screen Ur Phencyclidine Scrn Ur Amphetamine Screen U Methamphetamines Scrn U Benzodiazepines Scrn Urine Cocaine Screen U Cannabinoids Screen Ethyl Alcohol Coronavirus (PCR) Blood Type Blood Type Recheck O POSITIVE Antibody Screen Crossmatch IS Only 08/11/19 08/11/19 08/12/19 18:30 23:53 05:07 WBC RBC Hgb Hct MCV MCH MCHC RDW Plt Count MPV Neut # (Auto) Lymph # (Auto) [place] # (Auto) Eos # (Auto) Baso # (Auto) Absolute Nucleated RBC Total Counted Band Neuts % (Manual) Abnorm Lymph % (Manual) Myelocytes % Nucleated RBC % Neutrophils # (Manual) Lymphocytes # (Manual) Monocytes # (Manual) Eosinophils # (Manual) Basophils # (Manual) Differential Comment Manual Slide Review WBC Morphology Platelet Estimate Platelet Morphology RBC Morph Micro Appear Sodium 136 Potassium 3.8 Chloride 108 Carbon Dioxide 16 L Anion Gap 12.0 BUN 108 H* Creatinine 6.2 H Estimated GFR (MDRD) 6 L Glucose 120 H POC Whole Bld Glucose 113 H 100 Lactic Acid Calcium 7.4 L Magnesium Iron TIBC % Saturation Transferrin Total Bilirubin 0.6 AST 15 ALT 16 Alkaline Phosphatase 76 Troponin I High Sens Total Protein 4.9 L Albumin 1.7 L Globulin 3.2 Albumin/Globulin Ratio 0.5 L Lipase Urine Color Urine Clarity Urine pH Ur Specific [place] Urine Protein Urine Glucose (UA) Urine Ketones Urine Occult Blood Urine Nitrite Urine Bilirubin Urine Urobilinogen Ur Leukocyte Esterase Urine RBC Urine WBC Ur Squamous Epith Cells Urine Bacteria Ur Microscopic Review Urine Culture Comments Nasal Screen MRSA (PCR) Gastric Fluid pH Gastric Occult Blood Stl Occult Blood (IFOB) Stl C. diff Tox B Gene Urine Opiates Screen Ur Oxycodone Screen Urine Methadone Screen Ur Propoxyphene Screen Ur Barbiturates Screen Ur Tricyclics Screen Ur Phencyclidine Scrn Ur Amphetamine Screen U Methamphetamines Scrn U Benzodiazepines Scrn Urine Cocaine Screen U Cannabinoids Screen Ethyl Alcohol Coronavirus (PCR) Blood Type Blood Type Recheck Antibody Screen Crossmatch IS Only 08/12/19 08/12/19 05:07 06:17 WBC 21.2 H RBC 2.79 L Hgb 8.0 L Hct 23.2 L MCV 83.2 MCH 28.7 MCHC 34.5 RDW 16.1 H Plt Count 139 MPV 11.2 H Neut # (Auto) Not Reportable Lymph # (Auto) Not Reportable [place] # (Auto) Not Reportable Eos # (Auto) Not Reportable Baso # (Auto) Not Reportable Absolute Nucleated RBC Not Reportable Total Counted 100 Band Neuts % (Manual) 0 Abnorm Lymph % (Manual) 0 Myelocytes % 1 H Nucleated RBC % Not Reportable Neutrophils # (Manual) 17.0 H Lymphocytes # (Manual) 3.0 Monocytes # (Manual) 1.1 H Eosinophils # (Manual) 0.0 Basophils # (Manual) 0.0 Differential Comment MANUAL DIFFERENTIAL Manual Slide Review WBC Morphology NORMAL APPEARANCE Platelet Estimate NORMAL (130-450,000) Platelet Morphology NORMAL APPEARANCE RBC Morph Micro Appear 1+ AILIN CELLS Sodium Potassium Chloride Carbon Dioxide Anion Gap BUN Creatinine Estimated GFR (MDRD) Glucose POC Whole Bld Glucose 126 H Lactic Acid Calcium Magnesium Iron TIBC % Saturation Transferrin Total Bilirubin AST ALT Alkaline Phosphatase Troponin I High Sens Total Protein Albumin Globulin Albumin/Globulin Ratio Lipase Urine Color Urine Clarity Urine pH Ur Specific [place] Urine Protein Urine Glucose (UA) Urine Ketones Urine Occult Blood Urine Nitrite Urine Bilirubin Urine Urobilinogen Ur Leukocyte Esterase Urine RBC Urine WBC Ur Squamous Epith Cells Urine Bacteria Ur Microscopic Review Urine Culture Comments Nasal Screen MRSA (PCR) Gastric Fluid pH Gastric Occult Blood Stl Occult Blood (IFOB) Stl C. diff Tox B Gene Urine Opiates Screen Ur Oxycodone Screen Urine Methadone Screen Ur Propoxyphene Screen Ur Barbiturates Screen Ur Tricyclics Screen Ur Phencyclidine Scrn Ur Amphetamine Screen U Methamphetamines Scrn U Benzodiazepines Scrn Urine Cocaine Screen U Cannabinoids Screen Ethyl Alcohol Coronavirus (PCR) Blood Type Blood Type Recheck Antibody Screen Crossmatch IS Only - DIAGNOSTIC IMAGING Diagnostic Imaging Results: Final report reviewed - SEPSIS Current Stage of Sepsis: Resolved Possible source of Sepsis: Genitourinary - TIME SPENT Time Spent in Discharge (Minutes): 45
[2019-08-12] MEDS: ONDANSETRON 4 MG/2 ML VIAL IVP PRN (09:15)
[2019-08-12] MEDS: PANTOPRAZOLE 40 MG VIAL IVP SCH (09:15)
[2019-08-12] MEDS ORDERED: DEXTROSE 5%-0.9% NACL 1,000 ML IV SCH (09:55)
[2019-08-12 12:03] VITALS: BP 132/58
== END 2019-08-12 12:37 | disposition short-term general hospital (02) | DRG 871 ==
LOC: ED 09:24 → MS2 12:23 → ICU 08-11 14:58
PROVIDERS: ADMIT Internal Medicine; ATTEND Internal Medicine
PROC: 30233N1 Transfusion of Nonautologous Red Blood Cells into Peripheral Vein, Percutaneous Approach (ICD-10-PCS; principal; 2019-08-11)
DX: A41.51 Sepsis due to Escherichia coli [E. coli] (principal); J69.0 Pneumonitis due to inhalation of food and vomit; N17.9 Acute kidney failure, unspecified; D62 Acute posthemorrhagic anemia; R41.0 Disorientation, unspecified; N30.00 Acute cystitis without hematuria; I10 Essential (primary) hypertension; E87.1 Hypo-osmolality and hyponatremia; K92.2 Gastrointestinal hemorrhage, unspecified; E86.0 Dehydration; E87.6 Hypokalemia; N26.1 Atrophy of kidney (terminal); A41.89 Other specified sepsis; B96.20 Unspecified Escherichia coli [E. coli] as the cause of diseases classified elsewhere; B96.89 Other specified bacterial agents as the cause of diseases classified elsewhere; K21.9 Gastro-esophageal reflux disease without esophagitis; L27.1 Localized skin eruption due to drugs and medicaments taken internally; Z66 Do not resuscitate; T39.395A Adverse effect of other nonsteroidal anti-inflammatory drugs [NSAID], initial encounter; T36.8X5A Adverse effect of other systemic antibiotics, initial encounter; Y92.009 Unspecified place in unspecified non-institutional (private) residence as the place of occurrence of the external cause; T36.1X5A Adverse effect of cephalosporins and other beta-lactam antibiotics, initial encounter; Y92.230 Patient room in hospital as the place of occurrence of the external cause; Z20.828 Contact with and (suspected) exposure to other viral communicable diseases
CPT/HCPCS: 36415; 51701; 51798; 70450; 71045; 74176; 76770; 80048; 80053; 81001; 82274; 83540; 83605; 83690; 83735; 84466; 84484; 85025; 85027; 86850; 86900; 86901; 86920; 87040; 87070; 87077; 87086; 87150; 87181; 87205; 87493; 93005; 94640; 96361; 96374; 96375; 99284; 99285; A9270; J1170; J1200; J3490; P9016; U0004; 80306; 80320; 81003; 81599; 82803

== ENCOUNTER 2019-09-15 09:47 | Outpatient (CLI) | payer MEDICARE, OTHER ==
[2019-09-15 10:43] LABS: ALBUMIN 3.4 g/dL (3.2-5.5); CALCIUM 9.2 mg/dL (8.5-10.3); CREATININE 1.5 mg/dL (0.4-1.0); PHOSPHORUS 3.8 mg/dL (2.5-4.6)
[2019-09-15 10:58] LABS: % IRON SATURATION 20 % (20-50); IRON 49 ug/dL (28-170); TOTAL IRON BINDING CAPACITY 246 ug/dL (250-450); TRANSFERRIN 176 mg/dL (192-382)
== END 2019-09-15 09:48 | disposition home or self-care (01) ==
LOC: LAB 09:47
PROVIDERS: ATTEND Registered Nurse
DX: D50.9 Iron deficiency anemia, unspecified (principal); N17.9 Acute kidney failure, unspecified
CPT/HCPCS: 36415; 80069; 82728; 83540; 84466

== ENCOUNTER 2019-09-16 16:18 | Outpatient (CLI) | payer MEDICARE, OTHER ==
--- NOTE | 2019-09-16 17:23 | Ultrasound Report ---
PROCEDURE: Retroperitoneal INDICATIONS: RECURRENT UTI TECHNIQUE: Real-time scanning was performed of the retroperitoneal organs, with image documentation. COMPARISON: None. FINDINGS: Kidneys: Markedly atrophic right kidney there is of areas of microcysts and calcifications. It is poo rly delineated. Right kidney measures 6.8 cm long; left kidney measures 12.2 cm long. Right renal co rtical thickness is 0.6 cm; left renal cortical thickness is 2.1 cm. Mild to moderate left hydronephr osis. Bladder: Prevoid volume 50 3 cc post void residual 3 39 cm bilateral ureteral jets are identified. IMPRESSION: 1. Prominent post void residual. 2. Markedly atrophic right kidney with areas of microcalcifications and cystic formation. This could be secondary to multiple areas of previous infection/inflammation. 3. Mild to moderate left hydronephrosis. No visualized source of obstruction is identified. Reviewed by: Leonor Schroeder MD on 09/16/2019 5:22 PM PDT Approved by: Leonor Schroeder MD on 09/16/2019 5:22 PM PDT Station ID: [id number]
== END 2019-09-16 16:19 | disposition home or self-care (01) ==
LOC: DI 16:18
PROVIDERS: ATTEND Urology
DX: N26.1 Atrophy of kidney (terminal) (principal); N28.1 Cyst of kidney, acquired; N28.89 Other specified disorders of kidney and ureter; N13.30 Unspecified hydronephrosis
CPT/HCPCS: 76770

== ENCOUNTER 2019-12-10 09:32 | Outpatient (CLI) | payer MEDICARE, OTHER ==
[2019-12-10 09:51] LABS: HGB - HEMOGLOBIN 12.2 g/dL (12.0-16.0); MEAN CORPUSCULAR HEMOGLOBIN 28.4 pg (27.0-31.0); MEAN CORPUSCULAR VOLUME 88.6 fL (81.0-99.0); RED BLOOD COUNT 4.3 10^6/uL (4.20-5.40); WHITE BLOOD COUNT 7.2 x10^3/uL (4.8-10.8)
[2019-12-10 10:05] LABS: ALBUMIN 3.5 g/dL (3.2-5.5); CALCIUM 8.9 mg/dL (8.5-10.3); CREATININE 1.2 mg/dL (0.4-1.0); PHOSPHORUS 4.5 mg/dL (2.5-4.6); URIC ACID 7.3 mg/dL (2.6-7.2)
[2019-12-10 13:08] LABS: CREATININE,URINE 46.8 mg/dL; PROTEIN/CREATININE RATIO,URINE 0.3 (<=0.2)
== END 2019-12-10 09:33 | disposition home or self-care (01) ==
LOC: LAB 09:32
PROVIDERS: ATTEND Internal Medicine Nephrology
DX: N18.3 Chronic kidney disease, stage 3 (moderate) (principal); N17.9 Acute kidney failure, unspecified
CPT/HCPCS: 36415; 80069; 82570; 83970; 84156; 84550; 85027

== ENCOUNTER 2020-03-12 10:36 | Outpatient (CLI) | payer MEDICARE, OTHER ==
--- NOTE | 2020-03-12 16:43 | Ultrasound Report ---
PROCEDURE: Head or Neck Soft Tissue INDICATIONS: THYROID NODULE TECHNIQUE: Real-time scanning was performed of the thyroid gland, with image documentation. COMPARISON: Thyroid ultrasound 2010 FINDINGS: Right: Thyroid lobe measures 5.3 x 2.1 x 2.1 cm, and is homogeneous in echotexture. Left: Thyroid lobe measures 4.4 x 1.7 x 1.8 cm, and is homogenous in echotexture. Isthmus: 2 mm thick. Nodule number: One Location: Right lobe Size: 1.4 x 1.2 x 1.2 cm compared to 1.6 x 1.1 x 1.1 cm. Composition: Solid Echogenicity: Hypoechoic Shape: wider than tall. Margins: Smooth Echogenic foci: None Total points: 4 ACR TI-RADS category: 4 Nodule number: Two Location: Right lobe Size: 1.8 x 1.2 x 1.5 cm compared to 1.8 x 1.6 x 1.6 cm. Composition: Spongiform Echogenicity: Hypoechoic Shape: Wider than tall Margins: Smooth Echogenic foci: Macrocalcifications Total points: 5 ACR TI-RADS category: 4 Nodule number: Three Location: Right Size: 0.9 x 0.9 x 1.0 cm compared to 1.3 x 0.9 x 1.1 cm. Composition: Solid Echogenicity: Hypoechoic Shape: wider than tall. Margins: Irregular Echogenic foci: None Total points: 4 ACR TI-RADS category: 4 Nodule number: Four Location: Left Size: 1.0 x 0.8 x 1.0 cm compared to 1.2 x 0.8 x 1.0 cm. Composition: Solid Echogenicity: Hypoechoic Shape: wider than tall. Margins: Smooth Echogenic foci: None Total points: 4 ACR TI-RADS category: 4 Nodule number: 5 Location: Left lobe Size: 0.8 x 0.9 x 1.1 cm compared to 0.8 x 0.6 x 0.6 cm. Composition: Solid Echogenicity: Hypoechoic Shape: wider than tall. Margins: Smooth Echogenic foci: None Total points: 4 ACR TI-RADS category: 4 IMPRESSION: 1. Multiple bilateral pulmonary nodules, unchanged compared to prior exam. They are classified as cat egory 4 lesions. Typical follow-up is at 1, 3 and 5 years. Given stability since 2011, 5 year follow up window has been surpassed and no additional follow-up is recommended. ACR TI-RADS definitions and recommendations: TI-RADS 1 (benign): 0 points. FNA not needed. TI-RADS 2 (not suspicious): 2 points. FNA not needed. TI-RADS 3 (mildly suspicious): 3 points. ? FNA if 2.5 cm or larger, follow up if 1.5 cm or larger (at 1, 3, and 5 years). TI-RADS 4 (moderately suspicious): 4-6 points. ? FNA if 1.5 cm or larger, follow up if 1 cm or larger (at 1, 2, 3, and 5 years). TI-RADS 5 (highly suspicious): 7 points or more. ? FNA if 1 cm or larger, follow up if 0.5 cm or larger (every year for 5 years). Reviewed by: Leonor Schroeder MD on 03/12/2020 4:42 PM PST Approved by: Leonor Schroeder MD on 03/12/2020 4:42 PM PST Station ID: [id number]
== END 2020-03-12 10:37 | disposition home or self-care (01) ==
LOC: DI 10:36
PROVIDERS: ATTEND Registered Nurse
DX: E04.2 Nontoxic multinodular goiter (principal)

== ENCOUNTER 2020-03-17 09:30 | Outpatient (CLI) | payer MEDICARE, OTHER | END 2020-03-17 09:31 | disposition critical access hospital (66) | LOC: EMS 09:30 | PROVIDERS: ATTEND Surgery | DX: R55 Syncope and collapse (principal); S01.21XA Laceration without foreign body of nose, initial encounter; W18.39XA Other fall on same level, initial encounter; Y93.89 Activity, other specified; Y92.000 Kitchen of unspecified non-institutional (private) residence as the place of occurrence of the external cause | CPT/HCPCS: A0425; A0427 ==

== ENCOUNTER 2020-03-17 09:55 | Observation (INO) | payer MEDICARE, OTHER ==
--- NOTE | 2020-03-17 10:05 | ED Physician Documentation ---
History of Present Illness - Stated complaint Stated Complaint: GLF/FACIAL TRAUMA - History obtained from History obtained from: Patient, EMS - History of Present Illness Timing: Today Pain level max: 0 Pain level now: 0 - Additonal information Additional information: 79-year-old female presents to the emergency department after what sounds like a syncopal event today. She states that she has been lightheaded and dizzy, she believes that she may have passed out but is unsure. She fell and struck her face. Has head, neck pain. Also has pain to the face. No pain to the remainder of the back, the arms or legs. Worse with movement, better with rest. She is unsure if she is on blood thinners or not. She was activated as a modified trauma. Review of Systems Constitutional: denies: Fever, Chills Respiratory: denies: Cough GI: denies: Nausea, Vomiting, Diarrhea : denies: Dysuria Skin: denies: Rash Musculoskeletal: denies: Neck pain, Back pain Neurologic: denies: Headache PD PAST MEDICAL HISTORY - Past Medical History Cardiovascular: Hypertension Respiratory: None Endocrine/Autoimmune: None GI: GERD : None HEENT: None Psych: None Musculoskeletal: Other Derm: None - Past Surgical History Past Surgical History: Yes General: Colonoscopy Ortho: Hip replacement, Spine surgery - Present Medications Home Medications: Ambulatory Orders Medication Instructions Recorded Confirmed Amlodipine Besylate [Norvasc] 10 mg PO DAILY 03/17/20 03/17/20 Pantoprazole [Protonix] 40 mg PO DAILY 03/17/20 03/17/20 Sertraline [Zoloft] 50 mg PO DAILY 03/17/20 03/17/20 carvediloL [Coreg] 12.5 mg PO BID 03/17/20 03/17/20 - Allergies Allergies/Adverse Reactions: Allergies Allergy/AdvReac Type Severity Reaction Status Date / Time ceftriaxone Allergy Intermediate Shortness Verified 08/21/19 15:22 of breath and sore throat - Social History Does the pt smoke?: No Smoking Status: Never smoker Does the pt drink ETOH?: No Does the pt have substance abuse?: No PD ED PE NORMAL - Vitals Vital signs reviewed: Yes - General General: Alert and oriented X 3, No acute distress - HEENT HEENT: PERRL, Ears normal, Moist mucous membranes, Pharynx benign, Other (Laceration to the bridge of the nose. Mild swelling. Otherwise atraumatic exam) - Neck Neck: Supple, no meningeal sign, Other (Mild upper C-spine tenderness to palpation. No step-off or deformity) - Cardiac Cardiac: RRR, Strong equal pulses - Respiratory Respiratory: No respiratory distress, Clear bilaterally - Abdomen Abdomen: Soft, Non tender, Non distended - Derm Derm: Warm and dry - Extremities Extremities: No edema, No calf tenderness / cord - Neuro Neuro: Alert and oriented X 3, insole tack puller hand 2-12 intact, No motor deficit, No sensory deficit, Normal speech Eye Opening: Spontaneous Motor: Obeys Commands Verbal: Oriented GCS Score: 15 - Psych Psych: Normal mood, Normal affect Results - Vitals Vitals: Vital Signs - 24 hr 03/17/20 03/17/20 03/17/20 10:00 11:00 11:30 Temperature 36.8 C Heart Rate 67 70 69 Respiratory 18 16 16 Rate Blood Pressure 166/103 H 196/81 H 187/85 H O2 Saturation 100 100 100 03/17/20 03/17/20 03/17/20 12:00 12:32 13:00 Temperature Heart Rate 68 71 65 Respiratory 16 19 18 Rate Blood Pressure 189/89 H 142/129 H 168/80 H O2 Saturation 100 100 98 Oxygen O2 Source Room air - EKG (time done) 1012 Rate: Rate (enter#) (62) Rhythm: NSR Cha[place]in: Normal Intervals: Normal AL QRS: Normal Ischemia: Normal ST segments - Labs Labs: Laboratory Tests 03/17/20 03/17/20 03/17/20 10:10 10:10 10:10 WBC 9.1 RBC 4.58 Hgb 13.0 Hct 40.2 MCV 87.8 MCH 28.4 MCHC 32.3 RDW 15.3 H Plt Count 335 MPV 9.3 Neut # (Auto) 6.7 H Lymph # (Auto) 1.5 [place] # (Auto) 0.7 Eos # (Auto) 0.2 Baso # (Auto) 0.1 Absolute Nucleated RBC 0.00 Nucleated RBC % 0.0 PT 12.3 INR 1.1 APTT 26.2 Sodium 139 Potassium 4.2 Chloride 105 Carbon Dioxide 24 Anion Gap 10.0 BUN 26 H Creatinine 1.3 H Estimated GFR (MDRD) 39 L Glucose 114 H Calcium 9.8 Total Bilirubin 0.8 AST 24 ALT 17 Alkaline Phosphatase 64 Troponin I High Sens Total Protein 8.0 Albumin 3.8 Globulin 4.2 Albumin/Globulin Ratio 0.9 L Lipase 41 Urine Color Urine Clarity Urine pH Ur Specific [place] Urine Protein Urine Glucose (UA) Urine Ketones Urine Occult Blood Urine Nitrite Urine Bilirubin Urine Urobilinogen Ur Leukocyte Esterase Urine RBC Urine WBC Ur Squamous Epith Cells Urine Bacteria Ur Microscopic Review Urine Culture Comments 03/17/20 03/17/20 10:10 11:25 WBC RBC Hgb Hct MCV MCH MCHC RDW Plt Count MPV Neut # (Auto) Lymph # (Auto) [place] # (Auto) Eos # (Auto) Baso # (Auto) Absolute Nucleated RBC Nucleated RBC % PT INR APTT Sodium Potassium Chloride Carbon Dioxide Anion Gap BUN Creatinine Estimated GFR (MDRD) Glucose Calcium Total Bilirubin AST ALT Alkaline Phosphatase Troponin I High Sens 6.5 Total Protein Albumin Globulin Albumin/Globulin Ratio Lipase Urine Color LT. YELLOW Urine Clarity CLEAR Urine pH 7.0 Ur Specific [place] 1.015 Urine Protein NEGATIVE Urine Glucose (UA) NEGATIVE Urine Ketones NEGATIVE Urine Occult Blood TRACE-INTA Urine Nitrite NEGATIVE Urine Bilirubin NEGATIVE Urine Urobilinogen 0.2 (NORMAL) Ur Leukocyte Esterase SMALL H Urine RBC 0-5 Urine WBC 4-5 Ur Squamous Epith Cells RARE Squamous Urine Bacteria Few Ur Microscopic Review INDICATED Urine Culture Comments INDICATED - Rads (name of study) CT head Radiology: Prelim report reviewed, EMP read contemporaneously, See rad report (No acute intracranial process) CT cervical spine Radiology: Prelim report reviewed, EMP read contemporaneously, See rad report (No traumatic injury) CT maxillofacial Radiology: Prelim report reviewed, EMP read contemporaneously, See rad report (Minimally displaced nasal bone fracture with adjacent laceration. Remaining maxillofacial structures intact) Chest x-ray Radiology: Prelim report reviewed, EMP read contemporaneously, See rad report (No acute pulmonary process.) Procedures - Laceration (location) nasal bridge Length in cm: 1.5 Wound type: Linear, Into subcut fat, Clean Neurovascular status: Sensory intact, Motor intact, Vascular intact Wound Preparation: Irrigated copiously NS, Wound explored, To the base Skin layer closure: Dermabond Other: Patient tolerated well, No complications, Neurovascular intact, Tetanus UTD Complexity: Simple PD MEDICAL DECISION MAKING - ED course Complexity details: reviewed results, re-evaluated patient, considered differential, d/w patient ED course: Upon further evaluation. The patient states that she has had intermittent dizziness for the past several weeks with near syncopal events. Today she appears to have passed out as she did not brace herself and fell straight on her face. Given her elderly status, the recurrent intermittent dizziness, possible arrhythmia? We will place in observation for further care. Discussed the case with Dr. Mcgarry, hospitalist who accepts. This document was made in part using voice recognition software. While efforts are made to proofread this document, sound alike and grammatical errors may occur. Departure - Departure Disposition: ED Place in Observation Clinical Impression: Syncope Qualifiers: Syncope type: unspecified Qualified Code(s): R55 - Syncope and collapse Laceration of nose Qualifiers: Encounter type: initial encounter Qualified Code(s): S01.21XA - Laceration without foreign body of nose, initial encounter Contusion of face Qualifiers: Encounter type: initial encounter Qualified Code(s): S00.83XA - Contusion of other part of head, initial encounter Nasal bone fracture Qualifiers: Encounter type: initial encounter Fracture type: closed Qualified Code(s): S02.2XXA - Fracture of nasal bones, initial encounter for closed fracture Condition: Stable Discharge Date/Time: 03/17/20 14:20
[2020-03-17 10:17] LABS: BASOPHILS # (AUTO) 0.1 10^3/uL (0.0-0.1); BASOPHILS % (AUTO) 0.7 %; EOSINOPHILS # (AUTO) 0.2 10^3/uL (0.0-0.7); EOSINOPHILS % (AUTO) 1.9 %; LYMPHOCYTES # (AUTO) 1.5 10^3/uL (1.5-3.5); LYMPHOCYTES % (AUTO) 16.5 %; MEAN CORPUSCULAR HEMOGLOBIN 28.4 pg (27.0-31.0); MEAN CORPUSCULAR HGB CONC 32.3 g/dL (32.0-36.0); MEAN CORPUSCULAR VOLUME 87.8 fL (81.0-99.0); MEAN PLATELET VOLUME 9.3 fL (7.9-10.8); MONOCYTES # (AUTO) 0.7 10^3/uL (0.0-1.0); MONOCYTES % (AUTO) 7.1 %; NEUTROPHILS # (AUTO) 6.7 10^3/uL (1.5-6.6); NEUTROPHILS % (AUTO) 73.6 %; PLT - PLATELET COUNT 335 10^3/uL (130-450); RED BLOOD COUNT 4.58 10^6/uL (4.20-5.40); RED CELL DISTRIBUTION WIDTH 15.3 % (12.0-15.0); WHITE BLOOD COUNT 9.1 x10^3/uL (4.8-10.8)
[2020-03-17 10:28] LABS: INR 1.1 (0.8-1.2); PT - PROTHROMBIN TIME 12.3 secs (9.9-12.6)
[2020-03-17 10:32] LABS: ALBUMIN 3.8 g/dL (3.2-5.5); ALBUMIN/GLOBULIN RATIO 0.9 (1.0-2.2); BILIRUBIN,TOTAL 0.8 mg/dL (0.2-1.0); CALCIUM 9.8 mg/dL (8.5-10.3); CREATININE 1.3 mg/dL (0.4-1.0)
[2020-03-17 10:35] LABS: PARTIAL THROMBOPLASTIN TIME 26.2 secs (24.9-33.3)
--- NOTE | 2020-03-17 11:01 | CT Report ---
PROCEDURE: HEAD WO INDICATIONS: syncope, head injury TECHNIQUE: Noncontrast 4.5 mm thick angled axial sections acquired from the foramen magnum to the vertex. For r adiation dose reduction, the following was used: automated exposure control, adjustment of mA and/or kV according to patient size. COMPARISON: None. FINDINGS: Image quality: Excellent. CSF spaces: Basal cisterns are patent. No extra-axial fluid collections. Ventricles are normal in size and shape. Brain: No midline shift. No intracranial masses or hemorrhage. Viveros-white matter interface is norm al. Skull and face: Calvarium is intact, without suspicious lesions. Minimally displaced anterior-inferi or nasal bone fracture. Laceration involving the soft tissues of the nose noted. Sinuses: Visualized sinuses and mastoids are clear. IMPRESSION: No acute intracranial disease process. Reviewed by: Felisha King MD, PhD on 03/17/2020 11:00 AM PST Approved by: Felisha King MD, PhD on 03/17/2020 11:00 AM [facility] Station ID: [id number]
--- NOTE | 2020-03-17 11:03 | CT Report ---
PROCEDURE: MAXILLOFACIAL WO INDICATIONS: Syncope, facial trauma TECHNIQUE: Noncontrast 1.5 mm thick axial images acquired from the mandible through the frontal sinuses, with co michele and sagittal reformatting. For radiation dose reduction, the following was used: automated ex posure control, adjustment of mA and/or kV according to patient size. COMPARISON: None FINDINGS: Image quality: Excellent. Bones and teeth: Orbital wade are intact. Sinus wade show no fracture or deformity. Nasal bones and septum are intact. Visualized portions of the mandible demonstrate no fractures or subluxation. Zygomatic arches are intact. Pterygoid plates are intact. Visualized portions of the skull base an d auditory canals are intact. Sinuses: Mild ethmoid air cell thickening. Tiny right maxillary sinus fluid level. Remaining paranasa l sinuses and mastoid air cells are clear. Soft tissues: No edema, masses, or fluid collections. No enlarged lymph nodes. No soft tissue lace rations or debris. Vascular: Visualized vascular structures appear normal in the absence of contrast. Bony vascular fo ramina and canals are intact. IMPRESSION: Minimally displaced nasal bone fracture with adjacent laceration. Remaining maxillofacia l structures are intact. Reviewed by: Ray Fleming MD on 03/17/2020 10:02 AM [facility] Approved by: Ray Fleming MD on 03/17/2020 10:02 AM [facility] Station ID: [id number]
--- NOTE | 2020-03-17 11:06 | CT Report ---
PROCEDURE: CERVICAL SPINE WO INDICATIONS: Syncope, neck pain TECHNIQUE: Noncontrast 3 mm thick sections acquired from the skull base to the T4 level. Sagittal and coronal r eformats were then constructed. For radiation dose reduction, the following was used: automated exp osure control, adjustment of mA and/or kV according to patient size. COMPARISON: None. FINDINGS: Image quality: Excellent. Bones: No fractures or dislocations. Visualized superior ribs are intact. Extensive degenerative c hanges. Soft tissues: Prevertebral soft tissues are normal in thickness. No paravertebral hematomas. No ap ical pneumothoraces. IMPRESSION: No CT evidence of acute traumatic cervical spine injury. Reviewed by: Ray Fleming MD on 03/17/2020 10:05 AM [facility] Approved by: Ray Fleming MD on 03/17/2020 10:05 AM [facility] Station ID: [id number]
[2020-03-17 11:54] LABS: BILIRUBIN,URINE NEGATIVE (NEGATIVE); GLUCOSE, URINE (UA) NEGATIVE (NEGATIVE); KETONES,URINE (UA) NEGATIVE (NEGATIVE); LEUKOCYTE ESTERASE, URINE SMALL (NEGATIVE); NITRITE,URINE NEGATIVE (NEGATIVE); OCCULT BLOOD,URINE TRACE-INTA (NEGATIVE); PROTEIN,URINE NEGATIVE (NEGATIVE); UROBILINOGEN,URINE 0.2 (NORMAL) E.U./dL (NORMAL)
[2020-03-17 11:55] LABS: CLARITY,URINE CLEAR (CLEAR)
[2020-03-17 12:06] LABS: BACTERIA,URINE Few /HPF (None Seen); RBC,URINE 0-5 /HPF (0-5); SQUAMOUS EPITHELIAL CELL,UR RARE Squamous (<= Few)
[2020-03-17] MEDS ORDERED: ACETAMINOPHEN 325 MG TABLET PO STA (12:20)
--- NOTE | 2020-03-17 14:08 | XRAY Report ---
PROCEDURE: Chest 1 View X-Ray INDICATIONS: syncope TECHNIQUE: One view of the chest was acquired. COMPARISON: Chest x-ray 08/12/2019 FINDINGS: Surgical changes and devices: None. Lungs and pleura: No pleural effusions or pneumothorax. Lungs are clear. Mediastinum: Mediastinal contours appear normal. Heart size is normal. Bones and chest wall: No suspicious bony lesions. Overlying soft tissues appear unremarkable. IMPRESSION: No acute pulmonary process. Reviewed by: Leonor Schroeder MD on 03/17/2020 2:07 PM [facility] Approved by: Leonor Schroeder MD on 03/17/2020 2:07 PM [facility] Station ID: [id number]
[2020-03-17] MEDS ORDERED: SODIUM CHLORIDE FLUSH 0.9% 10 ML SYRINGE IVP PRN (14:09)
[2020-03-17] MEDS: SODIUM CHLORIDE 0.9% 1,000 ML IV SCH (15:38)
[2020-03-17] MEDS: SODIUM CHLORIDE FLUSH 0.9% 10 ML SYRINGE IVP SCH (15:38)
[2020-03-17] MEDS ORDERED: amLODIPine 5 MG TABLET PO ONE (16:13)
[2020-03-17] MEDS: ACETAMINOPHEN 325 MG TABLET PO PRN ×2 (16:26→20:35)
--- NOTE | 2020-03-17 16:33 | HISTORY & PHYSICAL EXAMINATION ---
DATE OF SERVICE: 03/17/2020 Physician: Caitlin Mcgarry MD HISTORY OF PRESENT ILLNESS: This is an 79-year-old white female with a history of hypertension, GERD, admission here in August 2019 with altered mental status from a UTI and also then had GI bleeding, pneumonia, and JESSICA. She required transfer to [facility] due to worsening kidney failure with possible need for dialysis and to have endoscopy. She reports that she did have endoscopy, and a bleeding ulcer was found. She is no longer anemic after having received iron replacements. She also did not need dialysis but had a slow recovery of her kidney function. Patient states that some of her medicines have been decreased or discontinued. She says that most mornings, after taking her usual morning medicines, she has lightheadedness and needs to brace herself until the feeling passes. She has never had full syncope until today. She states that she had her usual morning sensation of lightheadedness and then, with bending over to pick something up, she completely blacked out. She fell flat on her face. In the emergency room, she has been diagnosed with a laceration of the bridge of her nose and has multiple ecchymoses of the face. She is being placed in observation to evaluate the syncope. PAST MEDICAL HISTORY: Hypertension, GERD, GI bleed in July of this year, renal insufficiency during that hospitalization that has recovered, history of a neurogenic bladder for which she self-caths about 3 times a day. ALLERGIES: CEFTRIAXONE, WHICH CAUSED A RASH. MEDICATIONS 1. Amlodipine 10 mg daily. 2. Carvedilol 12.5 mg b.i.d. 3. Protonix 40 mg daily. 4. Zoloft 50 mg daily. 5. Vitamin E supplements. 6. Fish oil supplements. FAMILY HISTORY: No inherited diseases. SOCIAL HISTORY: She lives alone. She has a son who lives in [place]. 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 REVIEW OF SYSTEMS: She denies any chest pain, dyspnea on exertion. She used to have leg edema, but after the hospitalization in July and improvement in renal function she has had no more leg edema and does not use a diuretic. A comprehensive review of systems was performed. The pertinent positives are listed, the rest are negative. PHYSICAL EXAM GENERAL: An elderly white female who appears younger than her age. She has multiple ecchymoses of the lower forehead, the bridge of her nose, below her nose in the philtrum area. VITAL SIGNS: Blood pressure 178/95, heart rate 68 in sinus rhythm, afebrile, room air saturation 100%. HEENT: Revealed the bruises that are described above. Her teeth are intact. Oral mucosa is moist. NECK: No JVD at a 30-degree upright angle. No carotid bruits. CHEST: Clear. HEART: Normal heart sounds without murmurs. Regular rhythm. ABDOMEN: Soft, nontender. No organomegaly. EXTREMITIES: No clubbing, cyanosis, or edema. NEUROLOGIC: Grossly intact. LABORATORY/DATA Normal electrolytes. BUN is 26, creatinine 1.3. Troponin high sensitivity is 6.5. White blood count 9.1, hemoglobin 13, platelet count 335. INR normal at 1.1. Urinalysis had a pH of 7, specific gravity 1.015, leukocyte esterase small. Rare white blood cells and few bacteria were seen. Chest x-ray: No active pulmonary disease. EKG: Normal sinus rhythm, LVH voltage with left IVCD. IMPRESSION/DIAGNOSES 1. Syncope with a prodrome of lightheadedness, which makes orthostasis very likely, especially since it follows her morning medicines, which are amlodipine and carvedilol. 2. Facial laceration. 3. Acute kidney injury with creatinine of 1.3 (her new baseline creatinine is not known, however). 4. Abnormal EKG. 5. Hypertension. 6. History of gastroesophageal reflux disease. PLAN: Admit the patient to Observation status on telemetry. Check orthostatic vital signs every shift. Begin IV hydration and follow her BUN and creatinine daily. Obtain an Echo. Recycle troponin x1 more. Obtain the discharge summary from [facility] regarding her course of events there and her discharge medications. Since the most likely explanation is her morning combination of carvedilol and JOSE LUIS inhibitor, her blood pressure medications will need to be spread out. DEEP VENOUS THROMBOSIS PROPHYLAXIS: SCDS. CODE STATUS: DNR. ATTESTATION: The patient is expected to be discharged or transferred to another facility within 96 hours: Yes. cc: EDDIE Guillen TD: 03/17/2020 16:15 [facility]
--- NOTE | 2020-03-17 17:26 | PHARMACY PROGRESS NOTE ---
- Best Possible Medication History Admit Date and Time: 03/17/20 1329 Processed by: Pharmacy Medication History completed: Yes Patient Interview: Completed Secondary Source(s): Physician records, Pharmacy records, Insurance records As the person ultimately responsible for medication therapy, providers are able to order a medication from an existing home medication list in [facility] via the "Reconcile Routine" prior to Confirmation of that medication by academic support director. Such practice is discouraged except when the physician, in their clinical judgment, deems that a medical need exists for a medication without regard to previous use.
[2020-03-17] MEDS: FAMOTIDINE 20 MG TABLET PO SCH (20:36)
[2020-03-17] MEDS ORDERED: traZODone 50 MG TABLET PO SCH (21:00)
[2020-03-17] MEDS: traMADol 50 MG TABLET PO PRN (22:20)
[2020-03-18] MEDS: SODIUM CHLORIDE 0.9% 1,000 ML IV SCH ×2 (01:22→10:57)
[2020-03-18] MEDS: traMADol 50 MG TABLET PO PRN ×2 (02:36→15:54)
[2020-03-18] MEDS: ACETAMINOPHEN 325 MG TABLET PO PRN ×4 (02:39→16:25)
[2020-03-18] MEDS: SODIUM CHLORIDE FLUSH 0.9% 10 ML SYRINGE IVP SCH ×2 (02:40→07:53)
[2020-03-18] MEDS ORDERED: PETROLATUM WHITE 5 GM PACKET TOP PRN (02:52)
[2020-03-18] MEDS ORDERED: BACITRACIN ZINC OINT 1 PACKET TOP PRN (02:52)
[2020-03-18 05:49] LABS: CALCIUM 8.7 mg/dL (8.5-10.3); MAGNESIUM 1.8 mg/dL (1.7-2.8)
[2020-03-18] MEDS: FAMOTIDINE 20 MG TABLET PO SCH (07:49)
[2020-03-18] MEDS ORDERED: carvediloL 3.125 MG TABLET PO SCH (09:00)
--- NOTE | 2020-03-18 09:24 | Discharge Plan ---
Discharge Plan Problem Reviewed?: Yes Disposition: Home, Self Care Condition: Fair Prescriptions: Carvedilol [Coreg] 6.25 mg PO DAILY #30 tablet amLODIPine [Norvasc] 5 mg PO QPM #30 tablet Catheter [Personal Catheter Intermittent] 1 each QID #120 each Diet: Regular Activity Restrictions: Activity as Tolerated Shower Restrictions: No Driving Restrictions: Yes (No driving until OKd to resume by your PCP) Instruction Topics: ED Hypotension All Causes Health Concerns: You were in Observation status to evaluate the cause for your syncope (blacking out). When you fell you sustained facial trauma. Lacerations were repaired in the ER. We found you to have a severe drop in blood pressure when you go from laying to sitting to standing. To correct this, your blood pressure medications have been decreased or adjusted and, most importantly, spread out. Follow the new list of medications and take them at the times prescribed. You also need to stay better hydrated. Remember that caffeine makes you urinate even more than normal. You need to drink more fluids such as broths, juices or electrolyte drinks. Please see your Primary Care Provider in the next 5 to 10 days for follow-up with these medication changes, and to re-evaluate your facial trauma. YOU MAY NOT RE-USE THE SAME CATHETER OVER AND OVER TO SELF-CATH YOUR URINARY BLADDER. THIS WAS ALREADY EXPLAINED TO YOU AT [facility]. You received instruction here on proper hygienic technique. Supplies for self- catheterizing have been newly prescribed for you and your PCP can provide refill orders. All new prescriptions were electronically sent to your [facility] pharmacy in [place]. Plan of Treatment: As above. Care Goals: Improvement in symptoms and stabilization are the goals. Assessment: The patient understands and is agreeable with the plan. Additional Instructions or Follow Up instructions: If you have new or worsening symptoms, call your PCP for advice or come to the ER. No Smoking: If you smoke, Please STOP! Call for help. Follow-up with: Nathaly Flores ARNP [Primary Care Provider] -
[2020-03-18] MEDS ORDERED: amLODIPine 5 MG TABLET PO STA (12:35)
--- NOTE | 2020-03-18 13:58 | DISCHARGE SUMMARY ---
Discharge Summary Admit Date: 03/17/20 Discharge Date: 03/18/20 Discharging Provider: Caitlin Mcgarry MD Primary Care Provider: Nathaly Flores NP Condition at Discharge: Fair Discharge Disposition: 01 Home, Self Care - DIAGNOSES Admission Diagnoses: This is an 79 y/o white female who lives alone, with a history of HTN, GERD, self-caths for urinary retention and had an admission here in August 2019 with altered mental status from a UTI, had severe anemia (with Hgb 6.8) who then developed severe, acute renal failure (with creat 6.3) and a GI bleed, necessitating transfer to [facility] for possible hemodialysis and to have GI endoscopy. She had endoscopy that showed a bleeding ulcer from NSAID use, that was treated. She did not need dialysis but had very slow r ecovery of renal function, she reported. Her anemia required blood transfusions and improved with Iron. Her medications were changed and have caused a recurrent sensation of lightheadedness, about 1 hour after taking her morning meds. She had her usual lightheadedness sensation this morning, and when she bent over to pick something up, she had syncope, falling flat on her face. In the ER, she has been diagnosed with a laceration of the bridge of her nose, multiple facial ecchymoses, a minimally displaced nasal bone fracture but no other fractures, and a neg head CT were found. She is being placed in Observation to evaluate the syncope. - HOSPITAL COURSE Hospital Course: 1) Syncope She had an Echo that showed normal LV and RV contractility, mild tricuspid regurg. and PA pressure 44 mmHg. Telemetry and troponins were unremarkable. The cause of syncope was felt to be orthostasis. 2) Orthostatic hypotension We found she had a 35 mmHg orthostatic drop in blood pressure. To correct this, her blood pressure medications were decreased then spread out. Also, she was advised to stay better hydrated, since she drinks alot of caffeine. 3) Laceration of face Imaging in the ER showed a minimally displaced nasal bone fracture with adjacent laceration. The laceration was teated in the ER with cleaning and Dermabond. 4) Acute kidney injury Admission labs showed BUN/creat of 26/1.3. She was started on iv fluids. By the following day, BUN/creat were 18/1.0. She was advised to stay better hydrated, since she drinks alot of caffeine. 5) Abnormal EKG EKG showed LVH with left IVCD. 6) Hypertension She did have intermittent systolic BP readings here of 150-190. Her BP meds were spread out. 7) History of GERD As per Hx. 8) Hx of urinary retention requiring self cath She admitted to her nurses that she was reusing the same catheter for weeks, to self-cath, after rinsing it with soap and water. She carried that catheter in her purse in a plastic bag. It had been explained to her at [facility], during the transfer there in August 2019, that she should stop that practice. Therefore, she received instruction here on proper hygienic techniques, and supplies for self-catheterizing were newly prescribed for her. - ALLERGIES Allergies/Adverse Reactions: Allergies Allergy/AdvReac Type Severity Reaction Status Date / Time ceftriaxone Allergy Intermediate Shortness Verified 08/21/19 15:22 of breath and sore throat - MEDICATIONS Home Medications: Ambulatory Orders Medication Instructions Recorded Confirmed Pantoprazole [Protonix] 40 mg PO DAILY 03/17/20 03/17/20 Sertraline [Zoloft] 50 mg PO DAILY 03/17/20 03/17/20 Carvedilol [Coreg] 6.25 mg PO DAILY #30 tablet 03/18/20 Catheter [Personal Catheter 1 each MC QID #120 each 03/18/20 Intermittent] amLODIPine [Norvasc] 5 mg PO QPM #30 tablet 03/18/20 - PHYSICAL EXAM AT DISCHARGE General Appearance: positive: No acute distress, Alert Eyes Bilateral: positive: EOMI, Other (large eccymoses below both eyes down to cheeks) ENT: positive: No signs of dehydration, Other (swollen bridge of nose, ecchymoses below both eyes, swollen philtrum) Neck: positive: Nml inspection, No JVD Respiratory: positive: No respiratory distress, Breath sounds nml Cardiovascular: positive: Regular rate & rhythm, No murmur Abdomen: positive: Non-tender, Nml bowel sounds, No distention Extremities: positive: No pedal edema Neurologic/Psychiatric: positive: Oriented x3, Motor nml - LABS Result Diagrams: 03/17/20 10:10 03/18/20 05:15 - DIAGNOSTIC IMAGING Diagnostic Imaging Results: Final report reviewed - FOLLOW UP Follow Up: See PCP in 5-10 days for VS check and facial trauma check. - TIME SPENT Time Spent in Discharge (Minutes): 35
[2020-03-18 16:07] VITALS: BP 189/78
== END 2020-03-18 16:00 | disposition home or self-care (01) ==
LOC: EDUNIT# → ED 09:55 → MS2 13:29
PROVIDERS: ADMIT Internal Medicine; ATTEND Internal Medicine
DX: I95.1 Orthostatic hypotension (principal); N17.9 Acute kidney failure, unspecified; S02.2XXB Fracture of nasal bones, initial encounter for open fracture; W18.30XA Fall on same level, unspecified, initial encounter; Y92.009 Unspecified place in unspecified non-institutional (private) residence as the place of occurrence of the external cause; R94.31 Abnormal electrocardiogram [ECG] [EKG]; I10 Essential (primary) hypertension; N31.9 Neuromuscular dysfunction of bladder, unspecified; R33.9 Retention of urine, unspecified; K21.9 Gastro-esophageal reflux disease without esophagitis; Z87.19 Personal history of other diseases of the digestive system; Z79.899 Other long term (current) drug therapy
CPT/HCPCS: 12011; 36415; 70450; 70486; 71045; 72125; 80048; 80053; 81001; 83690; 83735; 84484; 85025; 85610; 85730; 87077; 87086; 87181; 93005; 93306; 99284; 99285; A9270; G0378; 81003

== ENCOUNTER 2020-09-29 07:00 | Outpatient (CLI) | payer MEDICARE, OTHER ==
[2020-09-29 15:18] LABS: BASOPHILS # (AUTO) 0.1 10^3/uL (0.0-0.1); BASOPHILS % (AUTO) 0.7 %; EOSINOPHILS # (AUTO) 0.2 10^3/uL (0.0-0.7); EOSINOPHILS % (AUTO) 2.1 %; HCT - HEMATOCRIT 32.1 % (37.0-47.0); HGB - HEMOGLOBIN 10.3 g/dL (12.0-16.0); LYMPHOCYTES # (AUTO) 1.9 10^3/uL (1.5-3.5); LYMPHOCYTES % (AUTO) 26.4 %; MEAN CORPUSCULAR HEMOGLOBIN 27.9 pg (27.0-31.0); MEAN CORPUSCULAR HGB CONC 32.1 g/dL (32.0-36.0); MONOCYTES # (AUTO) 0.7 10^3/uL (0.0-1.0); MONOCYTES % (AUTO) 10.2 %; NEUTROPHILS # (AUTO) 4.3 10^3/uL (1.5-6.6); NEUTROPHILS % (AUTO) 60.3 %; PLT - PLATELET COUNT 306 10^3/uL (130-450); RED BLOOD COUNT 3.69 10^6/uL (4.20-5.40); RED CELL DISTRIBUTION WIDTH 15.6 % (12.0-15.0); WHITE BLOOD COUNT 7.1 x10^3/uL (4.8-10.8)
[2020-09-29 15:37] LABS: CALCIUM 9.1 mg/dL (8.5-10.3); CREATININE 1.5 mg/dL (0.4-1.0); POTASSIUM 4.2 mmol/L (3.5-5.0)
== END 2020-09-29 23:59 | disposition home or self-care (01) ==
LOC: LAB.R 07:00
PROVIDERS: ATTEND Physician Assistant
DX: D50.9 Iron deficiency anemia, unspecified (principal); N18.30 Chronic kidney disease, stage 3 unspecified
CPT/HCPCS: 80048; 83540; 84466; 85025

== ENCOUNTER 2021-08-03 08:00 | Outpatient (CLI) | payer MEDICARE, OTHER ==
[2021-08-03 09:16] LABS: BASOPHILS % (AUTO) 0.7 %; EOSINOPHILS # (AUTO) 0.1 10^3/uL (0.0-0.7); EOSINOPHILS % (AUTO) 2.3 %; HCT - HEMATOCRIT 37.8 % (37.0-47.0); HGB - HEMOGLOBIN 12.3 g/dL (12.0-16.0); LYMPHOCYTES # (AUTO) 1.2 10^3/uL (1.5-3.5); LYMPHOCYTES % (AUTO) 21.6 %; MEAN CORPUSCULAR HEMOGLOBIN 28.1 pg (27.0-31.0); MEAN CORPUSCULAR HGB CONC 32.5 g/dL (32.0-36.0); MEAN CORPUSCULAR VOLUME 86.5 fL (81.0-99.0); MEAN PLATELET VOLUME 9.4 fL (7.9-10.8); MONOCYTES # (AUTO) 0.6 10^3/uL (0.0-1.0); MONOCYTES % (AUTO) 10.1 %; NEUTROPHILS # (AUTO) 3.7 10^3/uL (1.5-6.6); NEUTROPHILS % (AUTO) 65.1 %; PLT - PLATELET COUNT 303 10^3/uL (130-450); RED BLOOD COUNT 4.37 10^6/uL (4.20-5.40); RED CELL DISTRIBUTION WIDTH 15.9 % (12.0-15.0); WHITE BLOOD COUNT 5.7 x10^3/uL (4.8-10.8)
[2021-08-03 09:48] LABS: THYROID STIMULATING HORMONE 1.25 uIU/mL (0.34-5.60)
[2021-08-03 09:54] LABS: FERRITIN 24.3 ng/mL (11.0-306.8)
[2021-08-03 11:52] LABS: % IRON SATURATION 25 % (20-50); ALBUMIN 3.4 g/dL (3.2-5.5); ALKALINE PHOSPHATASE 56 IU/L (42-121); ALT ALANINE AMINOTRANSFERASE 16 IU/L (10-60); AST ASPARTATE AMINOTRANSFERASE 26 IU/L (10-42); BILIRUBIN,TOTAL 0.7 mg/dL (0.2-1.0); BUN - BLOOD UREA NITROGEN 23 mg/dL (6-20); CALCIUM 9.1 mg/dL (8.5-10.3); CARBON DIOXIDE - CO2 25 mmol/L (21-32); CHLORIDE 105 mmol/L (101-111); CREATININE 1.1 mg/dL (0.4-1.0); GFR - MDRD 48 (>89); GLUCOSE 99 mg/dL (70-100); IRON 79 ug/dL (28-170); PHOSPHORUS 3.5 mg/dL (2.5-4.6); POTASSIUM 4.1 mmol/L (3.5-5.0); SODIUM 140 mmol/L (135-145); TOTAL IRON BINDING CAPACITY 315 ug/dL (250-450); TOTAL PROTEIN 7.1 g/dL (6.7-8.2); TRANSFERRIN 225 mg/dL (192-382); URIC ACID 6.4 mg/dL (2.6-7.2)
[2021-08-03 12:05] LABS: BILIRUBIN,DIRECT < 0.1 mg/dL (0.1-0.5)
== END 2021-08-03 23:59 | disposition home or self-care (01) ==
LOC: LAB 08:00
PROVIDERS: ATTEND Registered Nurse
DX: E79.0 Hyperuricemia without signs of inflammatory arthritis and tophaceous disease (principal); R53.83 Other fatigue; N18.30 Chronic kidney disease, stage 3 unspecified; Z86.2 Personal history of diseases of the blood and blood-forming organs and certain disorders involving the immune mechanism
CPT/HCPCS: 36415; 80048; 80076; 82607; 82728; 83540; 84100; 84443; 84466; 84550; 85025

== ENCOUNTER 2021-08-13 08:22 | Emergency (ER) | payer MEDICARE, OTHER ==
[2021-08-13 09:17] LABS: BASOPHILS % (AUTO) 0.6 %; EOSINOPHILS # (AUTO) 0.2 10^3/uL (0.0-0.7); EOSINOPHILS % (AUTO) 3.2 %; HCT - HEMATOCRIT 36.8 % (37.0-47.0); HGB - HEMOGLOBIN 11.8 g/dL (12.0-16.0); LYMPHOCYTES # (AUTO) 1.3 10^3/uL (1.5-3.5); LYMPHOCYTES % (AUTO) 24.6 %; MEAN CORPUSCULAR HEMOGLOBIN 27.7 pg (27.0-31.0); MEAN CORPUSCULAR HGB CONC 32.1 g/dL (32.0-36.0); MEAN CORPUSCULAR VOLUME 86.4 fL (81.0-99.0); MEAN PLATELET VOLUME 9.4 fL (7.9-10.8); MONOCYTES # (AUTO) 0.6 10^3/uL (0.0-1.0); MONOCYTES % (AUTO) 10.7 %; NEUTROPHILS # (AUTO) 3.2 10^3/uL (1.5-6.6); NEUTROPHILS % (AUTO) 60.7 %; PLT - PLATELET COUNT 295 10^3/uL (130-450); RED BLOOD COUNT 4.26 10^6/uL (4.20-5.40); RED CELL DISTRIBUTION WIDTH 16.1 % (12.0-15.0); WHITE BLOOD COUNT 5.3 x10^3/uL (4.8-10.8)
[2021-08-13 09:27] LABS: ALBUMIN 3.3 g/dL (3.2-5.5); BILIRUBIN,TOTAL 0.7 mg/dL (0.2-1.0); CREATININE 1.1 mg/dL (0.4-1.0); POTASSIUM 4.1 mmol/L (3.5-5.0); TOTAL PROTEIN 6.7 g/dL (6.7-8.2)
--- NOTE | 2021-08-13 09:35 | ED Physician Documentation ---
History of Present Illness - Stated complaint Stated Complaint: BP HIGH - Chief complaint Chief Complaint: Cardiac - History obtained from History obtained from: Patient, Family - History of Present Illness Timing: Yesterday - Additonal information Additional information: 80-year-old female with a history of hypertension has come to the emergency department today with elevated blood pressure and a headache. She states that she feels fuzzy headed and similar to what she felt like when she was first diagnosed with hypertension. She denies any lateralizing symptoms she denies any numbness she does state that she is under significant amount of stress that she is getting ready to move now. She denies any significant alcohol consumption but does state that she drinks occasionally had her last drink 2 days ago. She denies a heavy salt load. She states that she has been taking her medication and took an additional amlodipine last night. The patient self caths and has not had a urinary tract infection in 4 years. Review of Systems Constitutional: denies: Fever, Chills, Myalgias Eyes: denies: Decreased vision Ears: denies: Ear pain Nose: denies: Congestion Throat: denies: Sore throat Cardiac: denies: Chest pain / pressure, Palpitations Respiratory: denies: Dyspnea, Cough GI: denies: Abdominal Pain, Nausea, Vomiting, Constipation, Diarrhea : reports: Other (self caths and reports no cloudy urine.) Skin: denies: Rash Musculoskeletal: denies: Neck pain, Back pain, Extremity pain Neurologic: reports: Headache. denies: Generalized weakness, Focal weakness, Numbness, Difficulty speaking, Near syncope, Syncope, Confused, Altered mental status, Head injury, LOC PD PAST MEDICAL HISTORY - Past Medical History Cardiovascular: Hypertension Respiratory: None Endocrine/Autoimmune: None GI: GERD : None HEENT: None Psych: None Musculoskeletal: Other Derm: None - Past Surgical History Past Surgical History: Yes General: Colonoscopy Ortho: Hip replacement, Spine surgery - Present Medications Home Medications: Ambulatory Orders Medication Instructions Recorded Confirmed Pantoprazole [Protonix] 40 mg PO DAILY 03/17/20 08/13/21 Sertraline [Zoloft] 50 mg PO DAILY 03/17/20 08/13/21 Carvedilol [Coreg] 6.25 mg PO DAILY #30 tablet 03/18/20 08/13/21 Catheter [Personal Catheter 1 each QID #120 each 03/18/20 08/13/21 Intermittent] amLODIPine [Norvasc] 5 mg PO QPM #30 tablet 03/18/20 08/13/21 Nitrofurantoin [Macrobid] 100 mg PO BID #14 cap 08/13/21 - Allergies Allergies/Adverse Reactions: Allergies Allergy/AdvReac Type Severity Reaction Status Date / Time ceftriaxone Allergy Intermediate Shortness Verified 08/13/21 08:27 of breath and sore throat - Social History Does the pt smoke?: No Smoking Status: Never smoker Does the pt drink ETOH?: No Does the pt have substance abuse?: No PD ED PE NORMAL - Vitals Vital signs reviewed: Yes (hypertensive systolic ) - General General: Alert and oriented X 3, No acute distress, Well developed/nourished - HEENT HEENT: Atraumatic, PERRL, EOMI - Neck Neck: Supple, no meningeal sign, No bony TTP - Cardiac Cardiac: RRR, No murmur, Other (loud second sound) - Respiratory Respiratory: No respiratory distress, Clear bilaterally - Abdomen Abdomen: Soft, Non tender - Back Back: No CVA TTP, No spinal TTP - Derm Derm: Normal color, Warm and dry, No rash - Extremities Extremities: No deformity, No edema - Neuro Neuro: Alert and oriented X 3, ladies underwear operator 2-12 intact, No motor deficit, No sensory deficit, Normal speech Eye Opening: Spontaneous Motor: Obeys Commands Verbal: Oriented GCS Score: 15 - Psych Psych: Normal mood, Normal affect Results - Vitals Vitals: Vital Signs - 24 hr 08/13/21 08/13/21 08:27 09:25 Temperature 36.9 C Heart Rate 64 63 Respiratory 18 19 Rate Blood Pressure 202/74 H 189/79 H O2 Saturation 100 99 Oxygen O2 Source Room air - Labs Labs: Laboratory Tests 08/13/21 08/13/21 08/13/21 09:08 09:08 10:16 WBC 5.3 RBC 4.26 Hgb 11.8 L Hct 36.8 L MCV 86.4 MCH 27.7 MCHC 32.1 RDW 16.1 H Plt Count 295 MPV 9.4 Neut # (Auto) 3.2 Lymph # (Auto) 1.3 L [place] # (Auto) 0.6 Eos # (Auto) 0.2 Baso # (Auto) 0.0 Absolute Nucleated RBC 0.00 Nucleated RBC % 0.0 Sodium 140 Potassium 4.1 Chloride 106 Carbon Dioxide 25 Anion Gap 9.0 BUN 21 H Creatinine 1.1 H Estimated GFR (MDRD) 48 L Glucose 98 Calcium 9.0 Total Bilirubin 0.7 AST 27 ALT 22 Alkaline Phosphatase 55 Total Protein 6.7 Albumin 3.3 Globulin 3.4 Albumin/Globulin Ratio 1.0 Lipase 43 Urine Color LIGHT YELLOW Urine Clarity CLEAR Urine pH 7.0 Ur Specific [place] 1.010 Urine Protein NEGATIVE Urine Glucose (UA) NEGATIVE Urine Ketones NEGATIVE Urine Occult Blood TRACE-INTA Urine Nitrite POSITIVE H Urine Bilirubin NEGATIVE Urine Urobilinogen 0.2 (NORMAL) Ur Leukocyte Esterase SMALL H Urine RBC 0-5 Urine WBC 11-25 H Urine WBC Clumps PRESENT Ur Squamous Epith Cells RARE Squamous Urine Bacteria Few Ur Microscopic Review INDICATED Urine Culture Comments INDICATED - Rads (name of study) CT head Radiology: Prelim report reviewed (Impression: 1. No acute process.), EMP read indepedently, See rad report Procedures - IVC sono (time) 0850 Bedside IVC sono: IVC measures (cm) (1.6), Euvolemia PD MEDICAL DECISION MAKING - ED course Complexity details: reviewed old records, reviewed results, re-evaluated patient, considered differential, d/w patient ED course: Previously well 80-year-old female with a history of frequent urinary tract infections who now self caths has developed some elevated blood pressure readings with systolics over 220. She is developed a bit of a fuzzy head with this and she is taking additional amlodipine. She presents to the emergency department with mild symptoms and denies any symptoms of urinary difficulty. She is able to produce us a urine specimen which appears infected. She was surprised by this finding. I did not find the patient have any sign of constipation, alcohol or opiate withdrawal, did not find any painful stimulus and the patient has been taking her medications. I have encouraged the patient to increase her dose of amlodipine to twice per day and to follow-up with her primary for reevaluation of potential medication adjustment. In addition we will treat the urinary tract infection and I have E scribed some Macrobid to [facility] in [place]. Departure - Departure Disposition: 01 Home, Self Care Clinical Impression: UTI (urinary tract infection) Qualifiers: Urinary tract infection type: acute cystitis Hematuria presence: without hematuria Qualified Code(s): N30.00 - Acute cystitis without hematuria Hypertension Qualifiers: Hypertension type: unspecified Qualified Code(s): I10 - Essential (primary) hypertension Condition: Stable Instructions: ED UTI Cystitis Female, ED Hypertension Conf Out Of Control Follow-Up: Nathaly Flores ARNP [Primary Care Provider] - Prescriptions: Nitrofurantoin [Macrobid] 100 mg PO BID #14 cap Comments: Gail, today we found your blood pressure was markedly elevated and I am recommending that you increase your dose of amlodipine to twice per day. Continue taking your carvedilol and follow-up with Urszula Flores for reevaluation in the next 10 days. In addition we have E scribed some Macrobid to the [facility] in [place] for urinary tract infection.
--- NOTE | 2021-08-13 10:11 | CT Report ---
PROCEDURE: HEAD WO INDICATIONS: hypertensive headache TECHNIQUE: Noncontrast 4.5 mm thick angled axial sections acquired from the foramen magnum to the vertex. For r adiation dose reduction, the following was used: automated exposure control, adjustment of mA and/or kV according to patient size. COMPARISON: Head CT dated 03/17/2020 FINDINGS: Image quality: Excellent. CSF spaces: Basal cisterns are patent. No extra-axial fluid collections. Ventricles are normal in size and shape. Brain: No midline shift. No intracranial masses or hemorrhage. Viveros-white matter interface is norm al. Skull and face: Calvarium and visualized facial bones are intact, without suspicious lesions. Sinuses: Visualized sinuses and mastoids are clear. IMPRESSION: 1. No acute process. Reviewed by: Deisi Hill MD on 08/13/2021 10:10 AM PDT Approved by: Deisi Hill MD on 08/13/2021 10:10 AM PDT Station ID: [id number]
[2021-08-13 10:38] LABS: BILIRUBIN,URINE NEGATIVE (NEGATIVE); GLUCOSE, URINE (UA) NEGATIVE (NEGATIVE); KETONES,URINE (UA) NEGATIVE (NEGATIVE); LEUKOCYTE ESTERASE, URINE SMALL (NEGATIVE); NITRITE,URINE POSITIVE (NEGATIVE); OCCULT BLOOD,URINE TRACE-INTA (NEGATIVE); PROTEIN,URINE NEGATIVE (NEGATIVE); UROBILINOGEN,URINE 0.2 (NORMAL) E.U./dL (NORMAL)
[2021-08-13 10:41] LABS: CLARITY,URINE CLEAR (CLEAR)
[2021-08-13 10:53] LABS: BACTERIA,URINE Few /HPF (None Seen); RBC,URINE 0-5 /HPF (0-5); SQUAMOUS EPITHELIAL CELL,UR RARE Squamous (<= Few); WBC CLUMPS,URINE PRESENT
[2021-08-13 11:28] VITALS: BP 209/88
== END 2021-08-13 11:29 | disposition home or self-care (01) ==
LOC: ED 08:22
DX: N30.00 Acute cystitis without hematuria (principal); I10 Essential (primary) hypertension
CPT/HCPCS: 36415; 80053; 81001; 81003; 83690; 85025; 87077; 87086; 87181; 99284